=== PATIENT | female | born 1940 | race Caucasian/White ===

== ENCOUNTER 2016-08-21 | Inpatient (IN) | payer MEDICARE, OTHER, SELFPAY | END 2016-08-22 13:20 | disposition home or self-care (01) | DRG 627 | PROVIDERS: Admitting Provider Otolaryngology; Family Provider Family Medicine; Visit Provider Otolaryngology | DX: D34 Benign neoplasm of thyroid gland (principal); E04.9 Nontoxic goiter, unspecified | CPT/HCPCS: 60225; 36415; 82310; 82962; 88307; 88331; 96365; 96375; J0131; J2405 ==

== ENCOUNTER → 2017-09-06 08:09 | Outpatient (CLI) | payer MEDICARE, OTHER, SELFPAY ==
[2017-09-06 10:33] LABS: Alanine Aminotransferase 22 U/L (12-78); Albumin Level 3.9 gm/dL (3.4-5.0); Alkaline Phosphatase 91 U/L (46-116); Anion Gap 13.3 mEq/L (5-15); Aspartate Amino Transferase 16 U/L (15-37); Bilirubin,Direct 0.1 mg/dL (0.0-0.2); Bilirubin,Total 0.5 mg/dL (0.2-1.0); Blood Urea Nitrogen 28 mg/dL (7-18); Carbon Dioxide 28 mmol/L (21.0-32.0); Chloride 104 mmol/L (98-107); Chol/HDL Ratio 1.7 (1-3.5); Cholesterol 192 mg/dL (140-200); Creatinine,Serum 0.76 mg/dL (0.55-1.02); Estimated Glomerular Filt Rate 74 ml/min (>60); GFR (African American) 90 ML/MIN (>60); Glucose 102 mg/dL (74-106); HDL Cholesterol 114 mg/dL (29-89); LDL Cholesterol 70 mg/dL (0-130); Potassium 4.3 mmoL/L (3.5-5.1); Sodium 141 mmol/L (136-145); Total Protein,Serum 6.5 gm/dL (6.4-8.2); Triglycerides 41 mg/dL (30-200); VLDL Cholesterol 8 mg/dL (0-40)
== END ==
PROVIDERS: PCP Family Medicine; Visit Provider Internal Medicine Cardiovascular Disease
DX: I10 Essential (primary) hypertension (principal); E11.9 Type 2 diabetes mellitus without complications; E78.5 Hyperlipidemia, unspecified
CPT/HCPCS: 36415; 80048; 80061; 80076

== ENCOUNTER → 2017-09-13 08:08 | Outpatient (CLI) | payer MEDICARE, OTHER, SELFPAY ==
[2017-09-13 10:44] LABS: Anion Gap 12.1 mEq/L (5-15); Blood Urea Nitrogen 27 mg/dL (7-18); Carbon Dioxide 28 mmol/L (21.0-32.0); Chloride 102 mmol/L (98-107); Estimated Glomerular Filt Rate 70 ml/min (>60); GFR (African American) 85 ML/MIN (>60); Glucose 172 mg/dL (74-106); Potassium 5.1 mmoL/L (3.5-5.1); Sodium 137 mmol/L (136-145)
== END ==
PROVIDERS: PCP Family Medicine; Visit Provider Internal Medicine Cardiovascular Disease
DX: I10 Essential (primary) hypertension (principal); E78.5 Hyperlipidemia, unspecified; K21.9 Gastro-esophageal reflux disease without esophagitis; E11.9 Type 2 diabetes mellitus without complications; I45.10 Unspecified right bundle-branch block
CPT/HCPCS: 36415; 80048

== ENCOUNTER → 2017-09-20 10:39 | Outpatient (CLI) | payer MEDICARE, OTHER, SELFPAY ==
[2017-09-20 11:54] LABS: Free T4 (Free Thyroxine) 1.21 ng/dl (0.76-1.46); Thyroid Stimulating Hormone 0.12 uIU/ml (0.358-3.740)
== END ==
PROVIDERS: Visit Provider Otolaryngology
DX: E03.9 Hypothyroidism, unspecified (principal)
CPT/HCPCS: 36415; 84439; 84443

== ENCOUNTER → 2017-09-30 11:00 | Outpatient (CLI) | payer MEDICARE, OTHER, SELFPAY | PROVIDERS: PCP Otolaryngology; Visit Provider Otolaryngology | DX: B35.1 Tinea unguium (principal) | CPT/HCPCS: 87102; 87206; 87220 ==

== ENCOUNTER → 2017-10-11 12:10 | Outpatient (POV) | payer MEDICARE, OTHER, SELFPAY | PROVIDERS: PCP Family Medicine; Visit Provider Podiatrist | DX: Z00.00 Encounter for general adult medical examination without abnormal findings (principal) ==

== ENCOUNTER → 2017-12-27 09:30 | Outpatient (POV) | payer MEDICARE, OTHER, SELFPAY | PROVIDERS: PCP Family Medicine; Visit Provider Podiatrist | DX: Z00.00 Encounter for general adult medical examination without abnormal findings (principal) ==

== ENCOUNTER → 2018-01-15 13:48 | Outpatient (POV) | payer MEDICARE, OTHER, SELFPAY | PROVIDERS: PCP Family Medicine | DX: Z00.00 Encounter for general adult medical examination without abnormal findings (principal) ==

== ENCOUNTER → 2018-05-27 16:45 | Outpatient (CLI) | payer MEDICARE, SELFPAY ==
--- NOTE | 2018-05-27 16:53 | MM_ITS ---
MM Dig screening mamm BI w/CAD ORDERING PHYSICIAN : Alo Infante MD PATIENT AGE: 78 years GENDER: Female COMPARISON: May 2011, June 2014 bilateral mammogram INDICATION: ITS.REASON: SCREENING no hormones. No new complaints Family history. Sister with breast cancer age 64. TECHNIQUE: Standard CC and MLO images were obtained. R2 CAD reviewed. Additional axillary cc view bilateral FINDINGS: Breast bilaterally with moderate dense fibroglandular pattern the breast density, which does dissipate on the MLO views. No suspicious nor unique or significant new findings. No dominant mass. No suspicious calcifications. Vascular calcifications bilaterally and other benign calcifications which can be followed, and similar since prior study. IMPRESSION: ...... No significant new findings. Stable mammogram. Bilateral follow-up in not over one year recommended BI-RADS Category: 2 Benign Finding(s) RECOMMENDED FOLLOW-UP: 1YR 1 YEAR FOLLOW-UP (A letter has been sent to the patient regarding results of the study.)
== END ==
PROVIDERS: PCP Family Medicine; Visit Provider Family Medicine
DX: Z12.31 Encounter for screening mammogram for malignant neoplasm of breast (principal)
CPT/HCPCS: 77067

== ENCOUNTER → 2019-01-14 14:18 | Outpatient (POV) | payer MEDICARE, OTHER, SELFPAY | DX: Z00.00 Encounter for general adult medical examination without abnormal findings (principal) ==

== ENCOUNTER → 2019-06-16 10:55 | Outpatient (CLI) | payer MEDICARE, SELFPAY ==
--- NOTE | 2019-06-16 10:57 | MM_ITS ---
PROCEDURE: MM DIG SCREENING MAMM BI W/CAD Patient Age:79Y CLINICAL INDICATION: SCREENING routine screening mammogram. No hormones, no new complaints. . Family history. Sister breast cancer age 69 postmenopausal COMPARISON: [facility] DIGITAL MAMM-SCREEN BILATERAL from 05/30/2010 [facility] DIGITAL MAMM-SCREEN BILATERAL from 06/05/2011 [facility] DIGITAL MAMM-SCREEN BILATERAL from 06/10/2012 [facility] DIG MAMM-SCREEN ALISON from 06/12/2013 [facility] DIG MAMM-SCREEN ALISON from 06/28/2014 [facility] MM Dig screening mamm BI w/CAD from 05/27/2018 TECHNIQUE: Standard CC and MLO images were obtained. R2 CAD reviewed. additional axillary CC view bilaterally; additional right MLO nipple profile view FINDINGS: The moderate breast density. No significant change since previous studies. No suspicious or dominant new mass is evident. Stable areas of mild asymmetry. Minimal vascular calcifications bilaterally but no suspicious calcifications. Bilateral follow-up 1 year recommended The the IMPRESSION: Stable bilateral mammogram. Moderately dense breast. No new areas of concern Ongoing bilateral annual follow-up recommended BI-RAD Category: 2 Benign Finding(s) FOLLOW-UP: 1YR 1 Year Follow-up (A letter has been sent to the patient regarding results of the study.) Dictated by: Bossman White MD 06/17/2019 09:28 Electronically signed by Bossman White MD in [place] 06/17/2019 09:28
== END ==
PROVIDERS: PCP Family Medicine; Visit Provider Family Medicine
DX: Z12.31 Encounter for screening mammogram for malignant neoplasm of breast (principal)
CPT/HCPCS: 77067

== ENCOUNTER → 2019-07-29 12:50 | Outpatient (POV) | payer MEDICARE, SELFPAY | DX: Z00.00 Encounter for general adult medical examination without abnormal findings (principal) ==

== ENCOUNTER → 2020-06-17 10:14 | Outpatient (CLI) | payer MEDICARE, OTHER, SELFPAY ==
--- NOTE | 2020-06-17 10:19 | MM_ITS ---
PROCEDURE: MM DIG SCREENING MAMM BI W/CAD Digital Breast Tomosynthesis Included CLINICAL INDICATION: SCREENING There is a history of breast cancer in patient's sister diagnosed after menopause. COMPARISON: MG [facility] DIG MAMM-SCREEN ALISON from 06/28/2014 MG [facility] MM Dig screening mamm BI w/CAD from 05/27/2018 MG MM DIG SCREENING MAMM BI W/CAD from 06/16/2019 TECHNIQUE: Standard CC and MLO images and 3D Tomosynthesis was obtained. R2 CAD reviewed. FINDINGS: Moderate fibroglandular densities are seen in the central portions of both breasts and the findings bilateral and symmetrical. Minimal arterial calcification in each breast. There are few scattered benign-appearing microcalcifications in each breast. There is no new or suspicious lesion in either breast and no suspicious microcalcifications. IMPRESSION: Fibrofatty parenchyma with no suspicious lesions seen BI-RAD Category: 2 Benign Finding(s) FOLLOW-UP: 1YR 1 Year Follow-up (A letter has been sent to the patient regarding results of the study.) Dictated by: Dr. Marco A Best MD 06/21/2020 09:36 Dr. Marco A Best MD in [place] 06/21/2020 09:36
== END ==
PROVIDERS: PCP Family Medicine; Visit Provider Family Medicine
DX: Z12.31 Encounter for screening mammogram for malignant neoplasm of breast (principal)
CPT/HCPCS: 77063; 77067

== ENCOUNTER → 2020-07-13 09:17 | Outpatient (CLI) | payer MEDICARE, OTHER, SELFPAY ==
--- NOTE | 2020-07-13 09:22 | XR_ITS ---
PROCEDURE: XR HAND LT MIN 3V CLINICAL INDICATION: LT HAND PAIN COMPARISON: CR WRL3 WRIST-3 VIEWS-LT from 11/01/2016 FINDINGS: No the metallic volar plate is again seen distal radius fixated by multiple threaded screws. The plate and screws are unchanged in appearance from the previous exam. There is no evidence of loosening of the threaded screws. The distal ulna is intact. The carpal bones appear normal. The soft tissues are unremarkable. IMPRESSION: Stable ORIF distal radial fracture, no acute pathology identified Dictated by: Dr. Marco A Best MD 07/13/2020 10:26 Dr. Marco A Best MD in [place] 07/13/2020 10:26
== END ==
PROVIDERS: PCP Family Medicine; Visit Provider Family Medicine
DX: M79.642 Pain in left hand (principal)
CPT/HCPCS: 73130

== ENCOUNTER → 2020-08-17 13:13 | Outpatient (POV) | payer MEDICARE, OTHER, SELFPAY | DX: Z00.00 Encounter for general adult medical examination without abnormal findings (principal) ==

== ENCOUNTER 2020-08-30 14:00 | Outpatient (RCR) | payer MEDICARE, OTHER, SELFPAY ==
--- NOTE | 2020-08-19 14:59 | HMH.OTOPEV ---
OT Inpatient Evaluation Rehab OT Outpatient Eval Start: 08/19/20 14:41 Freq: Status: Active Protocol: Document 08/19/20 14:41 RMARSHALL (Rec: 08/19/20 14:59 RMARSHALL [id number]) Electronically Signed By Chad Pool OT 08/19/20 14:41 Outpatient Therapy Subjective History Subjective History Pt is a 80 year old female who reports to therapy for initial evaluation to L ring finger. Pt reports she started having pain in the left ring finger/palm ~1 month ago and does not recall any specific injury. Pt did report ~3 years ago she required wrist surgery; however she has not had pain since. Pt also reports she has catching in the left ring finger causing pops and clicks . Pt's AROM is WNL; however, pt's strength is slightly declined. Pt will continue to be seen weekly in order to address all deficits. Chief Complaint Pain,Weakness Symptom Type Throb,Sharp Symptoms Relieved By Rest/Positioning Symptoms Aggravated By Physical Activity,Lifting Prior Functional Limitations None Current Functional Limitations Lifting,Housework,Sleeping, Recreation Activity Symptom Description Intermittent,Activity Dependent Level of pain today (0-10) 5 Pain scale - at its best (0-10) 0 Pain scale - at its worst (0-10) 8 Wrist/Hand Eval Finger Range of Motion Left Ring Finger Finger Metacarpophalangeal Flexion 90 degrees Active Range of Motion (degrees) Finger Metacarpophalangeal Extension 0 degrees Active Range of Motion (degrees) Finger Proximal Interphalangeal Flexion 100 degrees Active Range (degrees) Finger Proximal Interphalangeal 0 degrees Extension Active Range (degrees) Finger Distal Interphalangeal Flexion 50 degrees Active Range of Motion (degrees) Finger Distal Interphalangeal Extension 0 degrees Active Range Motion (degrees) Hand/Finger Manual Muscle testing Finger Flexion Strength Grade 3+ Fair+ Finger Extension Strength Grade 3+ Fair+ Finger Abduction Strength Grade 3+ Fair+ Finger Adduction Strength Grade 3+ Fair+ OT Outpatient Assessment Impairments Problems/Impairments Palpation Tenderness,Impaired Range of Motion,Impaired Strength,
== END 2020-08-30 14:05 | disposition home or self-care (01) ==
LOC: OT 14:00
PROVIDERS: PCP Family Medicine; Visit Provider Family Medicine
DX: M79.642 Pain in left hand (principal)
CPT/HCPCS: 97010; 97035; 97110; 97140; 97166

== ENCOUNTER → 2021-01-25 13:03 | Outpatient (POV) | payer MEDICARE, OTHER, SELFPAY | DX: Z00.00 Encounter for general adult medical examination without abnormal findings (principal) ==

== ENCOUNTER → 2021-02-17 08:55 | Outpatient (CLI) | payer MEDICARE, OTHER, SELFPAY ==
--- NOTE | 2021-02-17 09:00 | XR_ITS ---
PROCEDURE: XR HAND LT MIN 3V CLINICAL INDICATION: LT hand trigger finger COMPARISON: CR XR HAND LT MIN 3V from 07/13/2020 FINDINGS: No fracture or dislocation. No lytic or blastic change. There is normal mineralization. The joint spaces are well-preserved. No significant degenerative/arthritic changes. No erosive changes evident. Other findings:Prior ORIF distal radius with volar bone plate IMPRESSION: Negative left hand Dictated by: Cem Hagen MD 02/17/2021 10:04 Cem Hagen MD in [place] 02/17/2021 10:04
== END ==
PROVIDERS: PCP Family Medicine; Visit Provider Orthopaedic Surgery
DX: M79.642 Pain in left hand (principal)
CPT/HCPCS: 73130

== ENCOUNTER → 2021-07-07 16:25 | Outpatient (CLI) | payer MEDICARE, OTHER, SELFPAY ==
--- NOTE | 2021-07-07 16:27 | MM_ITS ---
PROCEDURE INFORMATION: Exam: MG Bilateral Screening 3D Mammography Exam date and time: 07/07/2021 4:27 PM Age: 81 years old Clinical indication: Encounter for screening mammogram for malignant neoplasm of breast TECHNIQUE: Imaging protocol: Bilateral screening tomosynthesis and 2D mammography including computer-aided detection (CAD) when performed. COMPARISON: 1. MG MM DIG SCREENING MAMM BI W/CAD 06/17/2020 10:33 AM 2. MG MM DIG SCREENING MAMM BI W/CAD 06/16/2019 11:08 AM FINDINGS: MAMMOGRAPHY: Breast composition: The breast tissue is heterogeneously dense, which may obscure small masses. Mass: None. Architectural distortion: None. Calcifications: No suspicious calcifications. Asymmetric density: None. Skin thickening: None. Axillary adenopathy: None. IMPRESSION: No mammographic evidence of malignancy. Annual screening is recommended unless otherwise clinically indicated. ASSESSMENT: BI-RADS Category 1: Negative
== END ==
PROVIDERS: PCP Family Medicine; Visit Provider Family Medicine
DX: Z12.31 Encounter for screening mammogram for malignant neoplasm of breast (principal)
CPT/HCPCS: 77063; 77067

== ENCOUNTER → 2021-08-09 08:27 | Outpatient (CLI) | payer MEDICARE, SELFPAY ==
[2021-08-09 09:41] LABS: Alanine Aminotransferase 13 U/L (12-78); Albumin Level 4.1 g/dl (3.5-5.0); Albumin/Globulin Ratio 1.7 (1.1-1.8); Alkaline Phosphatase 97 U/L (38-126); Aspartate Amino Transferase 27 U/L (14-36); Bilirubin,Total 0.5 mg/dl (0.2-1.3); Blood Urea Nitrogen 25 mg/dl (7-17); Calcium 9.4 mg/dl (8.4-10.2); Carbon Dioxide 30 mmol/L (22.0-30.0); Chloride 102 mmol/L (98-107); Estimated Glomerular Filt Rate 60 ml/min (>60); GFR (African American) 73 ML/MIN (>60); Globulin 2.4 g/dL (1.3-3.2); Glucose 162 mg/dl (74-100); Sodium 136 mmol/L (136-145); Total Protein,Serum 6.5 g/dl (6.3-8.2)
[2021-08-09 10:12] LABS: Thyroid Stimulating Hormone 2.03 uIU/mL (0.465-4.68)
[2021-08-09 10:18] LABS: Creatinine,Urine Random 303 mg/dL (Not Estab.)
[2021-08-09 10:21] LABS: Microalbumin/Creatinine Ratio 25.9
== END ==
PROVIDERS: PCP Family Medicine; Visit Provider Physician Assistant
DX: E10.65 Type 1 diabetes mellitus with hyperglycemia (principal); E89.0 Postprocedural hypothyroidism; Z79.4 Long term (current) use of insulin
CPT/HCPCS: 36415; 80053; 82043; 82570; 84443

== ENCOUNTER → 2021-10-03 13:41 | Outpatient (POV) | payer MEDICARE, SELFPAY | PROVIDERS: Visit Provider Dermatology | DX: Z00.00 Encounter for general adult medical examination without abnormal findings (principal) ==

== ENCOUNTER → 2021-10-05 12:44 | Outpatient (CLI) | payer MEDICARE, SELFPAY ==
--- NOTE | 2021-10-05 12:45 | CA_ITS ---
APPROVED REPORT EXAM: Comprehensive 2D, Doppler, and color-flow Echocardiogram [employer] And Edger: Kriss Cordon RVT Ht: 5 ft 3 in Wt: 125lbs BSA: 1.58 BP: 190/53 mmHg Indications: ABN EKG,RBBB,HTN,DM,HLD,GERD 2D Dimensions LVOT 1.86 cm (M/F) 1.5-2.5 LA Volume 48.80 mL LA Volume Index 30.88 mL/m2 (M/F) 16-34 M-Mode Dimensions RVDd 1.86 cm (0.9-2.6) LA Diam 4.17 cm (1.9-4.0) LVDd 5.12 cm (3.5-5.7) Ao Diam 2.76 cm (2.0-3.7) LVDs 3.75 cm (3.5-5.7) IVSd 0.87 cm (0.6-1.1) PWd 0.72 cm (0.6-1.1) EF (Teich) 52.00% FS 26.80% EDV (Teich) 124.90 mL TAPSE 2.47 (<1.7) ESV (Teich) 60.00 mL LV Diastology E Decel Time 260.00 (160-240 msec) E/A Ratio 0.8 MED E' 7.20 (< 7 cm/sec) E'/MED E' Ratio 16.18 (>14) LAT E' 6.60 (<10 cm/sec) E/LAT E' Ratio 17.65 (>14) Aortic Valve LVOT Max 133.00 (70-110 cm/s) LVOT VTI 36.59 cm AoV Peak Morgan. 181.00 (50-130 cm/s) AO Peak GR. 13.10 mmHg AO Mean GR. 6.10 (<5 mmHg) AO VTI 38.80 (18-25 cm) ADALI (VTI) 2.56 (2.5-4.5 cm2) Mitral Valve MV E Max Morgan. 117.00 (40-130 cm/s) MV A Velocity 153.00 (40-130 cm/s) E/A Ratio 0.76 MV Decel. Time 260.00 (160-240 ms) MV PHT 76.00 ms Pulmonary Valve PV Peak Velocity 93.00 (50-150 cm/s) Tricuspid Valve TR P. Velocity 337.00 cm/s RAP Estimate 10.00 mmHg RVSP 55.50 mmHg Left Ventricle Left atrium is mildly enlarged, left ventricle is normal size, mild concentric left ventricular hypertrophy, visually estimated ejection fraction 55% with no regional wall motion abnormality, grade 1 diastolic dysfunction seen with tissue Doppler evidence of raise left atrial pressure. Right Ventricle Right atrium and right ventricle are normal size and contractility. Aortic Valve Aortic valve is thickened and calcified without aortic stenosis or aortic insufficiency. Mitral Valve Mitral valve has mitral calcification which extends in both anterior and posterior mitral leaflet, there is mild restriction in the leaflet mobility, mean gradient across mitral valve is 5.6 mmHg, valve area is 2.8 cm??? by pressure half-time represents mild calcific mitral stenosis, there is mild mitral regurgitation. Tricuspid Valve Tricuspid valve grossly normal, there is mild tricuspid regurgitation, calculated right ventricular systolic pressure is 44 mmHg. Pulmonic Valve Pulmonic valve is poorly visualized. Great Vessels Aortic root is normal size. Inferior vena cava is poorly visualized. Pericardium No significant pericardial effusion noted. Conclusion 1. Mildly enlarged left atrium, normal left ventricular size, mild concentric left ventricular hypertrophy, visually estimated ejection fraction 55% with no regional wall motion abnormality, grade 1 diastolic dysfunction seen with tissue Doppler evidence of raise left atrial pressure. 2. Thickened and calcified aortic valve without aortic stenosis or aortic insufficiency. 3. Abnormal mitral valve as described above with mild mitral stenosis, there is mild mitral regurgitation. 4. Mild tricuspid regurgitation, calculated right ventricular systolic pressure is 44 mmHg. 5. No significant pericardial effusion. 6. Inferior vena cava is poorly visualized. Electronically signed by : Xander Smith MD 10/06/2021 12:47:57
== END ==
PROVIDERS: PCP Family Medicine; Visit Provider Physician Assistant
DX: E11.9 Type 2 diabetes mellitus without complications (principal); E78.2 Mixed hyperlipidemia; I45.10 Unspecified right bundle-branch block; K21.9 Gastro-esophageal reflux disease without esophagitis; R94.31 Abnormal electrocardiogram [ECG] [EKG]; Z79.4 Long term (current) use of insulin
CPT/HCPCS: 93306

== ENCOUNTER → 2021-10-24 10:23 | Outpatient (CLI) | payer MEDICARE, SELFPAY ==
[2021-10-24 11:40] LABS: Chloride 105 mmol/L (98-107); Sodium 133 mmol/L (136-145)
[2021-10-24 11:43] LABS: Blood Urea Nitrogen 31 mg/dl (7-17); Carbon Dioxide 27 mmol/L (22.0-30.0); Estimated Glomerular Filt Rate 53 ml/min (>60); GFR (African American) 65 ML/MIN (>60)
[2021-10-24 11:44] LABS: Calcium 8.4 mg/dl (8.4-10.2); Glucose 141 mg/dl (74-100)
== END ==
PROVIDERS: Visit Provider Nurse Practitioner Family
DX: E11.9 Type 2 diabetes mellitus without complications (principal); E78.2 Mixed hyperlipidemia; I10 Essential (primary) hypertension; I45.10 Unspecified right bundle-branch block; K21.9 Gastro-esophageal reflux disease without esophagitis; R60.9 Edema, unspecified; R94.31 Abnormal electrocardiogram [ECG] [EKG]; Z79.4 Long term (current) use of insulin
CPT/HCPCS: 36415; 80048

== ENCOUNTER → 2021-12-14 09:34 | Outpatient (CLI) | payer MEDICARE, SELFPAY ==
[2021-12-14 10:51] LABS: Anion Gap 12.3 mEq/L (5-15); Blood Urea Nitrogen 31 mg/dl (7-17); Calcium 9.1 mg/dl (8.4-10.2); Carbon Dioxide 26 mmol/L (22.0-30.0); Chloride 104 mmol/L (98-107); Estimated Glomerular Filt Rate 60 ml/min (>60); GFR (African American) 73 ML/MIN (>60); Glucose 66 mg/dl (74-100); Potassium 4.3 mmoL/L (3.5-5.1); Sodium 138 mmol/L (136-145)
== END ==
PROVIDERS: PCP Family Medicine; Visit Provider Physician Assistant
DX: E78.2 Mixed hyperlipidemia (principal); E87.1 Hypo-osmolality and hyponatremia; I10 Essential (primary) hypertension; K21.9 Gastro-esophageal reflux disease without esophagitis; R06.02 Shortness of breath; R42 Dizziness and giddiness; R94.31 Abnormal electrocardiogram [ECG] [EKG]
CPT/HCPCS: 36415; 80048

== ENCOUNTER → 2022-03-06 08:11 | Outpatient (CLI) | payer MEDICARE, SELFPAY ==
[2022-03-06 16:57] LABS: Cholesterol 180 mg/dl (140-200); HDL Cholesterol 88 mg/dl (40-60); Triglycerides 61 mg/dl (30-150); VLDL Cholesterol 12 mg/dL (0-40)
[2022-03-07 08:46] LABS: Direct LDL Cholesterol 84 mg/dL (100-129)
== END ==
PROVIDERS: PCP Family Medicine; Visit Provider Physician Assistant
DX: E78.00 Pure hypercholesterolemia, unspecified (principal)
CPT/HCPCS: 36415; 80061

== ENCOUNTER → 2022-07-24 13:13 | Outpatient (POV) | payer MEDICARE, SELFPAY | PROVIDERS: Visit Provider Dermatology | DX: Z00.00 Encounter for general adult medical examination without abnormal findings (principal) ==

== ENCOUNTER → 2023-03-29 15:46 | Outpatient (CLI) | payer MEDICARE, SELFPAY ==
--- NOTE | 2023-03-29 15:46 | US_ITS ---
PROCEDURE: US TRANSVAGINAL CLINICAL INDICATION: Postmenopausal Bleeding/ Also has Pessary COMPARISON: No exams were available for comparison FINDINGS: Transvaginal sonographic images of the pelvis were obtained. UTERUS: 6.3 cm x 3.9 cmx 2.9 cm. The uterus is anteverted. Within the uterine cavity is a cystic mass measuring 2.6 cm x 1.7 cm x 2.8 cm. It has the ground-glass appearance of blood clot. The endometrium appears very thin. The uterine myometrium appears calcified. LEFT OVARY: Not visualized RIGHT OVARY: Not visualized Both ovaries are not seen. Both adnexae appear normal. There is no fluid in the cul-de-sac. IMPRESSION: 1. Anteverted small uterus. The myometrium is calcified. 2. Within the endometrial cavity appears to be a 2.8 centimeter collection of blood. 3. The ovaries are not seen likely due to atrophy. 4. No fluid in the cul-de-sac. Dictated by: Shaun Stoll MD 04/01/2023 10:00 Shaun Stoll MD in [place] 04/01/2023 10:00
== END ==
PROVIDERS: PCP Family Medicine; Visit Provider Obstetrics & Gynecology
DX: N95.0 Postmenopausal bleeding (principal); Z96.0 Presence of urogenital implants
CPT/HCPCS: 76830

== ENCOUNTER → 2023-05-14 10:12 | Outpatient (CLI) | payer MEDICARE, SELFPAY ==
[2023-05-14 10:45] LABS: Basophils % 0.6 % (0.1-2.0); Eosinophils # 0.2 K/mm3 (0.0-0.4); Eosinophils % 2.4 % (0.1-12.0); Hematocrit 33.4 % (37.0-47.0); Hemoglobin 11.3 g/dL (12.2-16.2); Lymphocytes # 1.4 K/mm3 (0.7-4.5); Lymphocytes % 23.3 % (10-50); Mean Corpuscular HGB Conc 33.8 g/dL (31.8-35.4); Mean Corpuscular Hemoglobin 31.9 pg (27.0-31.2); Mean Corpuscular Volume 94.5 fl (81-99); Mean Platelet Volume 8.8 fl (7.4-10.4); Monocytes # 0.6 K/mm3 (0.1-1.0); Monocytes % 9.2 % (1.7-9.3); Neutrophils # 3.9 K/mm3 (1.8-7.8); Neutrophils % 64.4 % (37.0-80.0); Platelet Count 255 K/mm3 (142-424); Red Blood Count 3.53 M/mm3 (4.20-5.40); Red Cell Distribution Width 13.2 % (11.5-17.5)
[2023-05-14 11:53] LABS: Alanine Aminotransferase 16 U/L (12-78); Albumin Level 4.2 g/dl (3.5-5.0); Albumin/Globulin Ratio 1.6 (1.1-1.8); Alkaline Phosphatase 113 U/L (38-126); Anion Gap 14.5 mEq/L (5-15); Aspartate Amino Transferase 28 U/L (14-36); Bilirubin,Total 0.7 mg/dl (0.2-1.3); Blood Urea Nitrogen 43 mg/dl (7-17); Calcium 9.4 mg/dl (8.4-10.2); Carbon Dioxide 26 mmol/L (22.0-30.0); Chloride 99 mmol/L (98-107); Estimated Glomerular Filt Rate 48 ml/min (>60); GFR (African American) 58 ML/MIN (>60); Globulin 2.7 g/dL (1.3-3.2); Glucose 206 mg/dl (74-100); Potassium 4.5 mmoL/L (3.5-5.1); Sodium 135 mmol/L (136-145); Total Protein,Serum 6.9 g/dl (6.3-8.2)
== END ==
PROVIDERS: PCP Family Medicine; Visit Provider Obstetrics & Gynecology
DX: I10 Essential (primary) hypertension (principal); Z01.818 Encounter for other preprocedural examination
CPT/HCPCS: 36415; 80053; 85025

== ENCOUNTER → 2023-07-02 08:28 | Outpatient (CLI) | payer MEDICARE, SELFPAY ==
[2023-07-02 10:30] LABS: Free T4 (Free Thyroxine) 1.38 ng/dl (0.78-2.19)
[2023-07-02 14:32] LABS: Cholesterol 201 mg/dl (140-200); Triglycerides 56 mg/dl (30-150); VLDL Cholesterol 11 mg/dL (0-40)
[2023-07-02 14:40] LABS: HDL Cholesterol 97 mg/dl (40-60)
[2023-07-02 14:44] LABS: Direct LDL Cholesterol 80.04 mg/dL (100-129)
[2023-07-02 15:04] LABS: Thyroid Stimulating Hormone 0.31 uIU/mL (0.465-4.68)
== END ==
PROVIDERS: PCP Family Medicine; Visit Provider Internal Medicine
DX: E78.00 Pure hypercholesterolemia, unspecified; E89.0 Postprocedural hypothyroidism
CPT/HCPCS: 36415; 80061; 84439; 84443

== ENCOUNTER 2023-07-31 13:52 | Outpatient (CLI) | payer MEDICARE, SELFPAY ==
[2023-07-31 14:10] LABS: Basophils # 0.1 K/mm3 (0-0.2); Basophils % 0.9 % (0.1-2.0); Eosinophils # 0.2 K/mm3 (0.0-0.4); Eosinophils % 2.9 % (0.1-12.0); Hematocrit 36.4 % (37.0-47.0); Hemoglobin 11.8 g/dL (12.2-16.2); Lymphocytes # 2.2 K/mm3 (0.7-4.5); Lymphocytes % 30.1 % (10-50); Mean Corpuscular HGB Conc 32.4 g/dL (31.8-35.4); Mean Corpuscular Hemoglobin 30.8 pg (27.0-31.2); Mean Corpuscular Volume 94.9 fl (81-99); Mean Platelet Volume 8.7 fl (7.4-10.4); Monocytes # 0.5 K/mm3 (0.1-1.0); Monocytes % 7.2 % (1.7-9.3); Neutrophils # 4.3 K/mm3 (1.8-7.8); Neutrophils % 58.9 % (37.0-80.0); Platelet Count 316 K/mm3 (142-424); Red Blood Count 3.83 M/mm3 (4.20-5.40); Red Cell Distribution Width 13.1 % (11.5-17.5); White Blood Count 7.3 K/mm3 (4.8-10.8)
[2023-07-31 15:01] LABS: Chloride 102 mmol/L (98-107); Potassium 4.3 mmoL/L (3.5-5.1); Sodium 139 mmol/L (136-145)
[2023-07-31 15:03] LABS: Blood Urea Nitrogen 54 mg/dl (7-17); Estimated Glomerular Filt Rate 33 ml/min (>60); GFR (African American) 40 ML/MIN (>60)
[2023-07-31 15:04] LABS: Alanine Aminotransferase 17 U/L (12-78); Albumin Level 4.3 g/dl (3.5-5.0); Albumin/Globulin Ratio 1.6 (1.1-1.8); Alkaline Phosphatase 120 U/L (38-126); Anion Gap 14.3 mEq/L (5-15); Aspartate Amino Transferase 26 U/L (14-36); Bilirubin,Total 0.5 mg/dl (0.2-1.3); Calcium 9.2 mg/dl (8.4-10.2); Carbon Dioxide 27 mmol/L (22.0-30.0); Globulin 2.7 g/dL (1.3-3.2); Glucose 140 mg/dl (74-100)
== END 2023-07-31 23:59 ==
LOC: LAB 13:54
PROVIDERS: PCP Family Medicine; Visit Provider Obstetrics & Gynecology
DX: Z01.812 Encounter for preprocedural laboratory examination (principal); D64.9 Anemia, unspecified
CPT/HCPCS: 36415; 80053; 85025

== ENCOUNTER 2023-08-06 06:03 | Day surgery (SDC) | payer MEDICARE, SELFPAY ==
[2023-08-01 16:57] VITALS: BMI 20.5
[2023-08-06] VITALS (10 sets, daily range): BP systolic 107–155; BP diastolic 41–60; PULSE 84–93; RESP 12–18; TEMP 36–36.8; O2SAT 93–99
[2023-08-06 06:37] LABS: POC Glucose,Bedside 275 (70-110)
[2023-08-06] MEDS: LACTATED RINGERS 1000ML 1,000 ML 25 ML IV (06:37)
--- NOTE | 2023-08-06 07:13 | P.PNANES_ITS ---
[facility] Disclaimer: The information contained in this section may have been updated after the patient was seen, as this information can be updated by other users. Medical History Cystocele with uterine prolapse Diabetes mellitus Dizziness Edema Gastroesophageal reflux disease Hyperlipidemia Hypertensive disorder Hypothyroidism Postmenopausal bleeding Prolapse of female pelvic organs Right bundle branch block Urethral caruncle Vulvar lesion Surgical History History of surgery on wrist Hx of thyroidectomy Family History Other Cancer Diabetes Hypertension Social History (Updated 08/06/23 @ 06:35 by Abril Benavidez RN) Smoking Status: Never smoker alcohol intake: never substance use type: denies use current occupational status: retired Travel in the last 8 weeks: None marital status: [facility] Anesthesia Checklist Patient Identification Patient Identification: Arm Band, Family and Verbal (Name & ) Structural Data Admitted From: Home Planned Operative Procedure/s: Hysteroscopy; D&C; Myosure Consent for Planned Operative Procedure(s) Verified: Yes Verified Documents: Surgical Consent and History and Physical NPO Status Verified Time NPO: 22:00 Chart Verification Results Verified: CBC, BMP and ECG Additional verifications Fingerstick Blood Glucose: 275 Patient : No Anesthesia Reactions: No Hx Blood Transfusions: No Blood Transfusion Reaction: No Cardiovascular Assessment Heart Sounds: S1 & S2 Pulse Rhythm: Irregular Peripheral Edema: No Airway Assessment Mallampati Score:: Class II C-Spine Mobility Assessed: Yes (FROM) TMJ Mobility Assessed: Yes Dentition: Good Dentition (Nothing loose per pt.) Neurological Assessment Level of Consciousness: Awake, Alert, Appropriate and Follows Commands Hx Seizures: No Numbness or tingling in extremities: No Anesthesia Plan Anesthesia Risk discussed: Yes Anesthesia Plan: Verified ASA Class: III Anesthesia Type: General
--- NOTE | 2023-08-06 08:09 | P.PNANES_ITS ---
[facility] Anesthesia Record Part I Anesthesia Record I Intake, IV Amount: 800 Hydration: Adequate Estimated blood loss (mL): 5 Urine output (mL): 50 Blood Products used (#): none Blood Pressure: 107/41 SaO2: 94 Pulse Rate: 92 Airway Patency: Patent Respiratory Rate: 12 Temperature: 96.8 F Patient is:: Awake (Talking) and Stable Stable to PACU at:: 08:11
[2023-08-06 08:24] LABS: POC Glucose,Bedside 304 (70-110)
--- NOTE | 2023-08-06 08:45 | EXP.OP.NOTE ---
Date of procedure: 08/06/23 Pre-op Diagnosis:: 1. Postmenopausal bleeding Post-op Diagnosis:: 1. Postmenopausal bleeding Procedure performed:: 1. Hysteroscopy, dilation and curettage 2. Anaerobic and Aerobic cultures taken of endometrial fluid Surgeon:: Ivy Oliva DO Building [employer] Retrofit Technician(s):: N/a MANUFACTURER:: Other (GISELLA Hauser) Anesthesia: GETA Estimated blood loss (mL): 0 Clinical Note:: Virginia is a very pleasant 83 yo [id number] who presents for preop visit. She had postmenopausal bleeding for almost 2 months. She experienced bleeding every day from mid February until her pelvic ultrasound 03/29/23. She states bleeding stopped after pelvic ultrasound until she had a small amount of bleeding 04/09. Pelvic ultrasound 03/29/23 demonstrated anteverted small uterus, the myometrium is calcified. Within the endometrial cavity appears to be a 2.8 centimeter collection of blood. Denies bleeding since. Operative findings:: 1. On bimanual exam, uterus small, midline, retroverted. No adnexal masses palpated. Cervix appears grossly normal. Caramel brown colored fluid draining from cervical os during cervical dilation. 2. On hysteroscopic exam, left tubal ostia easily visualized but atrophic. Right tubal ostia not visualized. Uterine cavity with grossly normal atrophic endometrium. No masses, lesions or polyps. Operative note:: Risks, benefits and alternatives were discussed with the patient. Risks include but are not limited to bleeding, infection, uterine perforation and VTE. Patient voiced understanding and agreed to proceed. She was wheeled back to the operating room and placed under general anesthesia without difficulty. She was placed in dorsal lithotomy position. Pessary was removed. She was prepped and draped in the normal sterile fashion. Straight catheter was used to drain the bladder. A bimanual exam was performed. A weighted Auvard was placed in the vaginal vault. Single tooth tenaculum was placed on anterior lip of the cervix. Uterus sounded to 7. Sequential Francisco dilators were used to dilate the cervical os. Brown drainage was flowing from the cervix during cervical dilation. Anaerobic and Aerobic cultures collected and sent. Hysteroscope was tested inserted through the cervix without difficulty. Endometrial cavity was evaluated. See findings above. Pictures were taken. A medium size sharp curette was inserted through the cervix into the uterine cavity and endometrium was curetted with a systematic back and forth movement in a 360 degree manner. Scant endometrial curettings will be sent to pathology for review. Instruments were removed from the vagina. Tenaculum site was hemostatic. Pessary was washed, dried and resinserted into the vagina. Patient was awaken from anesthesia without difficulty. She was transported to recovery room in stable condition. Patient will be discharged home when awake and ambulating. She was given postop instructions as well as instructions to follow-up in the office in 2 weeks at which time pathology will be reviewed. Condition: stable Disposition: same day Specimens:: 1. Scant endometrial curettings Complications:: None
--- NOTE | 2023-08-06 12:41 | EXP.ANES.II ---
[facility] Anesthesia Record Part II Anesthesia Record Part II Discharge Time: 08:36 Destination: Surgical Day Care (OP Surgery) PACU nurse assessment reviewed?: Yes Patient Condition:: Good Anesthesia Complications:: None Swallowing reflex intact?: Yes Airway Patency: Patent Cyanosis?: No Blood Pressure: 108/43 SaO2: 93 Respiratory Rate: 15 Pulse Rate: 93 Temperature: 97.9 F Mental Status: Alert & Oriented Pain level:: 0 Nausea and/or vomitting:: None Intake, IV Amount: 0 Hydration: Adequate
== END 2023-08-06 09:00 | disposition home or self-care (01) ==
PROVIDERS: PCP Family Medicine; Visit Provider Obstetrics & Gynecology
PROC: (CPT 58558; principal; 2023-08-06 07:30)
DX: N95.0 Postmenopausal bleeding (principal); N85.8 Other specified noninflammatory disorders of uterus; E11.9 Type 2 diabetes mellitus without complications
CPT/HCPCS: 58558; 82962; 87070; 87075; 87205; 88305; J2405

== ENCOUNTER 2023-10-02 07:58 | Outpatient (CLI) | payer MEDICARE, SELFPAY ==
--- NOTE | 2023-10-02 08:01 | CA_ITS ---
FINAL REPORT TECHNIQUE: Color Doppler, duplex Doppler and buckner scale sonography of the bilateral neck arterial vasculature was performed. Velocities were measured in the carotid arteries. Stenosis evaluation based on the validated velocity criteria. CLINICAL HISTORY: dizziness, RBBB, HTN, hyperlipidemia, DM, GERD, ABN EKG FINDINGS: The peak systolic velocity of the right common carotid artery is 105 cm/s. The peak systolic velocity of the right internal carotid artery is 84 cm/s and end diastolic velocity 21 cm/s. The ICA/CCA ratio is .86. A small amount of plaque is present. The right external carotid artery is patent. The right vertebral artery is patent with antegrade flow. The peak systolic velocity of the left common carotid artery is 108 cm/s. The peak systolic velocity of the left internal carotid artery is 77 cm/s and end diastolic velocity 16 cm/s. The ICA/CCA ratio is 1.0. A small amount of plaque is present. The left external carotid artery is patent.The left vertebral artery is patent with antegrade flow. IMPRESSION: Less than 50% bilateral carotid stenoses. Bilateral patent vertebral arteries with antegrade flow. If indicated, CTA or MRA could further evaluate. Reviewed, Interpreted and Dictated by Juanjose Rousseau III, MD Transcribed by Miroslava Garcia Authenticated and [facility]
--- NOTE | 2023-10-02 08:01 | CA_ITS ---
APPROVED REPORT EXAM: Comprehensive 2D, Doppler, and color-flow Echocardiogram Tutoring Manager: Evita Pratt CRT Ht: 5 ft 3 in Wt: 115lbs BSA: 1.53 BP: 126/41 mmHg Indications: Abnormal ECG, Aortic Valve Disease, Mitral Valve Disease, Rheumatic Fever, Diabetes, Hyperlipidemia, Hypertension/HDD 2D Dimensions Left Atrium 3.78 cm LVEF (Beltrán's) 55.70 % LVOT 1.39 cm (M/F) 1.5-2.5 LV Volume 53.50 mL LA Volume 48.30 mL LA Volume Index 31.60 mL/m2 (M/F) 16-34 EF AP4 56.40 % EF AP2 51.7 % EF BP 55.7 % GL Strain -20.0 % M-Mode Dimensions RVDd 3.09 cm (0.9-2.6) LVDd 3.59 cm (3.5-5.7) Ao Diam 3.30 cm (2.0-3.7) LVDs 2.54 cm (3.5-5.7) IVSd 1.07 cm (0.6-1.1) PWd 0.81 cm (0.6-1.1) EF (Teich) 57.10% FS 29.20% EDV (Teich) 54.10 mL TAPSE 2.32 (<1.7) ESV (Teich) 23.20 mL LV Diastology E Decel Time 372 (160-240 msec) E/A Ratio 0.76 MED E' 5.7 (>= 7 cm/sec) MED A' 8.70 cm/s E'/MED E' Ratio 22.74 (<= 14) LAT E' 6.5 (>= 10 cm/sec) LAT A' 12.40 cm/s E/LAT E' Ratio 19.94 (<= 14) Aortic Valve LVOT Max 134.0 (70-110 cm/s) ADALI Index 0.82 cm2/m2 LVOT VTI 34.05 cm AoV Peak Morgan. 175.0 (50-130 cm/s) AO Peak GR. 11.60 mmHg AO Mean GR. 6.40 (<5 mmHg) AO VTI 40.9 (18-25 cm) ADALI (VTI) 1.26 (2.5-4.5 cm2) Mitral Valve MV E Max Morgan. 130.0 (40-130 cm/s) MV A Velocity 170.0 (40-130 cm/s) E/A Ratio 0.76 MV Decel. Time 372 (160-240 ms) MV Mean Gr. 5.20 (<2mmHg) Tricuspid Valve TR P. Velocity 307.00 cm/s RAP Estimate 10.00 mmHg RVSP 47.70 mmHg Left Ventricle The left ventricle is normal size. The left ventricular systolic function is normal. The left ventricular ejection fraction is within the normal range. There is increased LV wall thickness. There is normal LV segmental wall motion. Grade 2 diastolic dysfunction is present. LVEF is 60%. Right Ventricle The right ventricle is mildly dilated. The right ventricular systolic function is normal. There is a device lead in the right ventricle. Atria Left atrium is mildly dilated. Right atrium is mildly dilated. There is no Doppler evidence of interatrial shunt. Aortic Valve The aortic valve is mildly thickened. There is no aortic valvular stenosis. Trace aortic regurgitation. Mitral Valve Moderate mitral annular calcification. The mitral valve leaflets are mildly thickened, cannot rule out rheumatic mitral valve morphology. Mild mitral stenosis. Mean MV gradient 5 mmHg (HR 82 bpm). Mild mitral regurgitation. Tricuspid Valve The tricupis valve leaflets are thin and pliable. Mild tricuspid regurgitation. RVSP is 30-35 mmHg. Pulmonic Valve The pulmonary valve is normal in structure. Trace pulmonic regurgitation. Great Vessels The aortic root is normal in size. The ascending aorta is not well visualized. IVC is normal in size and collapses >50% with inspiration. Pericardium Trivial pericardial effusion. There are no echo indications of tamponade. Other Information Study Quality: Fair Conclusion Normal biventricular systolic function. Grade 2 diastolic dysfunction. Mild RV dilation. Biatrial dilation. Mild MR. Thickened MV, cannot rule out rheumatic mitral valve morphology. Mild MS (mean MV gradient 5mmHg at HR 82 bpm). Mild TR. RVSP is 30-35 mmHg. Trivial pericardial effusion. No echo indications of tamponade. Electronically signed by : Magy Rios MD 10/04/2023 23:04:34
== END 2023-10-02 23:59 ==
LOC: RT 08:01
PROVIDERS: PCP Family Medicine; Visit Provider Nurse Practitioner Family
DX: K21.9 Gastro-esophageal reflux disease without esophagitis (principal); E78.5 Hyperlipidemia, unspecified; R42 Dizziness and giddiness; I10 Essential (primary) hypertension; E11.9 Type 2 diabetes mellitus without complications; I34.0 Nonrheumatic mitral (valve) insufficiency; Z79.4 Long term (current) use of insulin
CPT/HCPCS: 93306; 93880

== ENCOUNTER 2023-10-08 18:25 | Emergency (ER) | payer MEDICARE, SELFPAY ==
--- NOTE | 2023-10-08 18:34 | XR_ITS ---
PROCEDURE INFORMATION: Exam: XR Right Hand Exam date and time: 10/08/2023 6:31 PM Age: 83 years old Clinical indication: Injury or trauma; Fall; Blunt trauma (contusions or hematomas); Hand; Right; Additional info: Pain TECHNIQUE: Imaging protocol: Radiologic exam of the right hand. Views: 3 or more views. COMPARISON: CR XR WRIST RT MIN 3V 10/08/2023 6:29 PM FINDINGS: Bones/joints: There is an impacted radial fracture. No additional fracture or dislocation. No aggressive osseous lesion. Soft tissues: Soft tissues otherwise within normal limits. IMPRESSION: There is an impacted radial fracture.
--- NOTE | 2023-10-08 18:34 | XR_ITS ---
PROCEDURE INFORMATION: Exam: XR Right Wrist Exam date and time: 10/08/2023 6:29 PM Age: 83 years old Clinical indication: Injury or trauma; Fall; Blunt trauma (contusions or hematomas); Wrist; Right; Additional info: Pain TECHNIQUE: Imaging protocol: Radiologic exam of the right wrist. Views: 3 or more views. COMPARISON: No relevant prior studies available. FINDINGS: Bones/joints: Nondisplaced impacted fracture of the distal radial metaphysis. No additional fracture or dislocation. No aggressive osseous lesion. Soft tissues: Soft tissues otherwise within normal limits. IMPRESSION: Nondisplaced impacted fracture of the distal radial metaphysis.
--- NOTE | 2023-10-08 18:35 | XR_ITS ---
PROCEDURE INFORMATION: Exam: XR Right Forearm Exam date and time: 10/08/2023 6:32 PM Age: 83 years old Clinical indication: Injury or trauma; Fall; Blunt trauma (contusions or hematomas); Arm, lower; Right; Additional info: Pain TECHNIQUE: Imaging protocol: Radiologic exam of the right forearm. Views: 2 views. COMPARISON: CR XR HAND RT MIN 3V 10/08/2023 6:31 PM FINDINGS: Bones/joints: Partially visualized impacted radial fracture. No additional fracture or dislocation. No aggressive osseous lesion. Soft tissues: Soft tissues otherwise within normal limits. IMPRESSION: Partially visualized impacted radial fracture.
[2023-10-08 18:45] VITALS: BP 155/51; PULSE 72; RESP 18; TEMP 36.6; O2SAT 97; BMI 20.5
--- NOTE | 2023-10-08 19:06 | EXP.UTC ---
Discharge Plan Disposition Patient Disposition: Home, Self-Care Condition: Good Prescriptions Prescriptions: No Action losartan 100 mg tablet 100 mg PO DAILY 90 Days Qty: 90 amlodipine 10 mg tablet 10 mg PO DAILY aspirin [Adult Low Dose Aspirin] 81 mg tablet,delayed release (DR/EC) 81 mg PO ONCE pravastatin 40 mg tablet 40 mg PO QHS insulin aspart U-100 100 unit/mL solution 0.8 unit SUB-Q DAILY calcium carbonate [Calcium 500] 500 mg calcium (1,250 mg) tablet 500 mg PO DAILY furosemide 20 mg tablet 20 mg PO DAILY levothyroxine 75 mcg tablet 75 mcg PO DAILY hydrochlorothiazide 12.5 mg tablet See Rx Instructions .ROUTE .COMPLEX Qty: 90 1RF Dose Instruction: Take 1 tablet by mouth once daily Rx Instructions: Take 1 tablet by mouth once daily Referrals Follow up/Referrals: Alo Infante MD [Primary Care Provider] - See instructions Pawan Avalos DO [Staff Physician] - See instructions Activity Restrictions/Add. Instructions Additional Instructions/Restrictions: Rest the extremity, apply ice for 15 minutes as tolerated three or four times per day, Elevate the extremity as tolerated while you are resting. Take tylenol or ibuprofen (if you can take this) for pain. Follow up with Dr. Avalos (orthopedics).I put in a referral but you need to call his office and schedule an appointment. Follow up with your regular doctor. GO TO THE ER FOR ANY WORSENING SYMPTOMS Clinical Impressions Clinical Impression: Closed fracture of right distal radius Instructions Patient Instructions: How to Take Care of Your Splint, DI for Distal Radius Fracture Discharge ED Provider: Benjamin Morgan [facility] General Stated complaint: AO 10/08/23 [id number] pain in right hand Mode of Arrival: Ambulatory Source of Information: Patient Limitations: No Limitations Time Seen by Provider: 10/08/23 19:06 Description of Symptoms (Recalled from Triage Doc. by RN): Pt was washing windows and fell. She landed and hurt wrist, forearm, and hand. HEENT Symptoms (Recalled from RN notes): No Resp Symptoms (Recalled from RN notes): No Skin Symptoms (Recalled from RN notes): No MS Symptoms (Recalled from RN notes): Yes Functional Status (Recalled from RN notes): n/a History of Present Illness Provider Complaint: She states that she fell while washing windows at her home today. She fell forward and came down on her right forearm. She has had right wrist pain since then. She denies any other injury or complaints since then. Related Data Home Medications Medication Instructions Recorded Confirmed aspirin 81 mg tablet,delayed 81 mg PO ONCE 08/28/17 10/08/23 release (Adult Low Dose Aspirin) pravastatin 40 mg tablet 40 mg PO QHS 08/28/17 10/08/23 losartan 100 mg tablet 100 mg PO DAILY 90 days #90 tabs 03/12/19 10/08/23 insulin aspart U-100 100 unit/mL 0.8 unit SQ DAILY 08/07/21 10/08/23 subcutaneous solution furosemide 20 mg tablet 20 mg PO DAILY 02/06/23 10/08/23 amlodipine 10 mg tablet 10 mg PO DAILY 04/10/23 10/08/23 calcium carbonate 500 mg calcium 500 mg PO DAILY 07/31/23 10/08/23 (1,250 mg) tablet (Calcium 500) levothyroxine 75 mcg tablet 75 mcg PO DAILY 08/20/23 10/08/23 Previous Rx's Medication Instructions Recorded hydrochlorothiazide 12.5 mg tablet See Rx Instructions .Route 09/02/23 .COMPLEX #90 tabs Allergies Allergy/AdvReac Type Severity Reaction Status Date / Time No Known Allergies Allergy Verified 10/08/23 18:56 Worker's Comp Is this a Worker's Comp case?: No [facility] Disclaimer: The information contained in this section may have been updated after the patient was seen, as this information can be updated by other users. 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 Vulvar lesion Edema Dizziness Right bundle branch block Diabetes mellitus Gastroesophageal reflux disease Hyperlipidemia Hypertensive disorder Surgical History H/O dilation and curettage History of hysteroscopy History of surgery on wrist Hx of thyroidectomy Family History Other Cancer Diabetes Hypertension Social History Smoking Status: Never smoker alcohol intake: never substance use type: denies use current occupational status: retired Travel in the last 8 weeks: None marital status: ROS Obtained: Yes All systems reviewed & no additional complaints except as documented Constitutional Constitutional: Denies chills and Denies fever(s) Eyes Eyes: Denies eye discharge ENT Ears, Nose, Mouth, and Throat: Denies dizziness, Denies otalgia and Denies sore throat Cardiovascular Cardiovascular: Denies chest pain Respiratory Respiratory: Denies shortness of breath, Denies chest congestion, Denies cough, Denies stridor and Denies wheezing Gastrointestinal Gastrointestingal: Denies nausea or vomiting Musculoskeletal Musculoskeletal: Reports as per HPI Integumentary/Breasts Skin/Breast: Denies redness, Denies rash and Denies wounds Neurologic Neurologic: Denies dizziness and Denies paresthesias Allergic/Immunologic Allergic/Immunologic: Denies wheezing Physical Exam General General appearance: alert and in no apparent distress Head Head exam: atraumatic, normocephalic and normal inspection Eye Eye exam: Present normal appearance, PERRL and EOMI ENT ENT exam: Present normal exam, normal oropharynx, mucous membranes moist, TM's normal bilaterally and normal external ear exam Neck Neck exam: Present normal inspection, full ROM and trachea midline; Absent meningismus or lymphadenopathy Chest Chest inspection: Present normal inspection and symmetric chest wall rise; Absent tenderness Respiratory Respiratory exam: Present normal lung sounds bilaterally; Absent respiratory distress Cardiovascular Cardiovascular exam: Present regular rate and normal rhythm; Absent JVD Abdominal Exam Abdominal exam: Present soft and normal bowel sounds; Absent distention, tenderness or guarding Extremities Exam Extremities exam: Present normal capillary refill; Absent calf tenderness Expanded Upper Extremity Exam Right: Elbow exam: Present normal inspection and full ROM; Absent tenderness, pain w/ pronation/supination or tenderness over radial head Forearm/Wrist exam: Present tenderness and swelling; Absent full ROM, abrasion, laceration, ecchymosis, deformity, crepitus, dislocation, erythema, tenderness over anatomical snuff box or pain with axial thumb loading Hand exam: Present full ROM and tenderness; Absent swelling, abrasion, laceration, skin avulsion, ecchymosis, deformity, crepitus, dislocation, erythema, amputation, nail avulsion or subungual hematoma Neuromotor exam: Normal wrist extension, thumb opposition, thumb IP flexion, thumb adduction and fingers 2-5 abduction Neurosensory exam: Normal radial nerve, ulnar nerve and median nerve Vascular exam: Normal capillary refill, radial pulse and ulnar pulse Back Exam Back exam: Present normal inspection; Absent tenderness Neurological Exam Neurological exam: Present alert and oriented X3 Psychiatric Psychiatric exam: Present normal affect and normal mood Skin Skin exam: Present warm, dry, intact and normal color Lymphatic Lymphatic Findings: no adenopathy Medical Decision Making Medical Records Medical records reviewed: No I reviewed the patient's medical records. Marco Inquiry Pt receiving controlled substance: No Vital Signs: 10/08/23 18:45 Temperature 97.8 F Temperature Source Oral Pulse Rate [Right Radial] 72 Respiratory Rate 18 Blood Pressure [Right Arm] 155/51 H Blood Pressure Mean [Right Arm] 85 Blood Pressure Source [Right Arm] Automatic Cuff Blood Pressure Position [Right Arm] Sitting 02 Sat by Pulse Oximetry 97 Oxygen Delivery Method Room Air Orders (Tests/Meds): ORDERS Category Date Time Status XR forearm RT 2V Stat Exams 10/08/23 18:35 Completed XR hand RT min 3V Stat Exams 10/08/23 18:34 Completed XR wrist RT min 3V Stat Exams 10/08/23 18:34 Completed Radiology Data #1: Image(s): Wrist Image Reviewed: Yes I reviewed the patient's radiology image and Yes I have reviewed radiologist's interpretation Preliminary Findings: Abnormal PROCEDURE INFORMATION: Exam: XR Right Wrist Exam date and time: 10/08/2023 6:29 PM Age: 83 years old Clinical indication: Injury or trauma; Fall; Blunt trauma (contusions or hematomas); Wrist; Right; Additional info: Pain TECHNIQUE: Imaging protocol: Radiologic exam of the right wrist. Views: 3 or more views. COMPARISON: No relevant prior studies available. FINDINGS: Bones/joints: Nondisplaced impacted fracture of the distal radial metaphysis. No additional fracture or dislocation. No aggressive osseous lesion. Soft tissues: Soft tissues otherwise within normal limits. IMPRESSION: Nondisplaced impacted fracture of the distal radial metaphysis. #2: Image(s): Hand Image Reviewed: Yes I reviewed the patient's radiology image and Yes I have reviewed radiologist's interpretation Preliminary Findings: Normal/NAD and No Fracture Seen PROCEDURE INFORMATION: Exam: XR Right Hand Exam date and time: 10/08/2023 6:31 PM Age: 83 years old Clinical indication: Injury or trauma; Fall; Blunt trauma (contusions or hematomas); Hand; Right; Additional info: Pain TECHNIQUE: Imaging protocol: Radiologic exam of the right hand. Views: 3 or more views. COMPARISON: CR XR WRIST RT MIN 3V 10/08/2023 6:29 PM FINDINGS: Bones/joints: There is an impacted radial fracture. No additional fracture or dislocation. No aggressive osseous lesion. Soft tissues: Soft tissues otherwise within normal limits. IMPRESSION: There is an impacted radial fracture. #3: Image(s): Forearm Image Reviewed: Yes I reviewed the patient's radiology image and Yes I have reviewed radiologist's interpretation Preliminary Findings: No Fracture Seen PROCEDURE INFORMATION: Exam: XR Right Forearm Exam date and time: 10/08/2023 6:32 PM Age: 83 years old Clinical indication: Injury or trauma; Fall; Blunt trauma (contusions or hematomas); Arm, lower; Right; Additional info: Pain TECHNIQUE: Imaging protocol: Radiologic exam of the right forearm. Views: 2 views. COMPARISON: CR XR HAND RT MIN 3V 10/08/2023 6:31 PM FINDINGS: Bones/joints: Partially visualized impacted radial fracture. No additional fracture or dislocation. No aggressive osseous lesion. Soft tissues: Soft tissues otherwise within normal limits. IMPRESSION: Partially visualized impacted radial fracture. Procedures Risk/Benefits of Procedure(s) Were Explained: Yes Orthopedic Splinting/Casting Injury #1: Side: right Upper Extremity Injury Location: forearm, wrist and hand Upper Extremity Immobilizer: sugar tong splint, sling and applied by nurse/dr felix Post Cast/Splinting Neuro Status: intact and no change Post Cast/Splinting Vasc Status: intact and no change
--- NOTE | 2023-10-08 19:52 | PC.NURSE ---
Placed an orthoglass sugar tong splint with sling. Placement was looked at by abelardo chow APRN.
[2023-10-08 19:53] VITALS: BP 155/51; PULSE 72; RESP 18; TEMP 36.6; O2SAT 97
== END 2023-10-08 19:53 | disposition home or self-care (01) ==
PROVIDERS: Emergency Provider Nurse Practitioner Family; PCP Family Medicine
DX: S52.501A Unspecified fracture of the lower end of right radius, initial encounter for closed fracture (principal); I34.0 Nonrheumatic mitral (valve) insufficiency; E03.9 Hypothyroidism, unspecified; E11.9 Type 2 diabetes mellitus without complications; K21.9 Gastro-esophageal reflux disease without esophagitis; E78.5 Hyperlipidemia, unspecified; I10 Essential (primary) hypertension; W19.XXXA Unspecified fall, initial encounter
CPT/HCPCS: 73090; 73110; 73130; 99204; 99212; G0463

== ENCOUNTER 2023-11-05 11:24 | Outpatient (CLI) | payer MEDICARE, SELFPAY ==
--- NOTE | 2023-11-05 11:28 | XR_ITS ---
FINAL REPORT CLINICAL HISTORY: right hand fx fall 1 month ago COMPARISON: None FINDINGS: AP, lateral and oblique views of the right hand were obtained. There is no prior exam for comparison. There is a cast overlying the wrist which somewhat limits overall bony detail. There is a healing comminuted and impacted fracture of the distal radial metaphysis. Callus formation appears to be present when compared to the prior exam of October 07. No new fracture or dislocation is identified. The joint spaces are preserved. The soft tissues are normal. IMPRESSION: Healing comminuted and impacted fracture of the distal radial metaphysis when compared to prior film of October 07. Reviewed, Interpreted and Dictated by Axel Pate MD Transcribed by Tiffany Dueñas Authenticated and [facility]
== END 2023-11-05 23:59 ==
LOC: RAD 11:25
PROVIDERS: PCP Family Medicine; Visit Provider Orthopaedic Surgery
DX: M79.641 Pain in right hand (principal); S52.501A Unspecified fracture of the lower end of right radius, initial encounter for closed fracture
CPT/HCPCS: 73130

== ENCOUNTER 2023-11-26 09:50 | Outpatient (CLI) | payer MEDICARE, SELFPAY ==
--- NOTE | 2023-11-26 09:53 | XR_ITS ---
FINAL REPORT CLINICAL HISTORY: Rt Wrist Pain, f/u fracture COMPARISON: 10/08/2023 FINDINGS: RIGHT WRIST Three views demonstrate a comminuted impacted fracture of the distal radius. Bony alignment is stable. There is evidence of interval healing. There is also a fracture of the ulnar styloid process. Worsening osteopenia is noted. The visualized joint spaces are normally aligned. The soft tissues are unremarkable. IMPRESSION: Fractures as above with interval healing. Reviewed, Interpreted and Dictated by Juanjose Rousseau III, MD Transcribed by Becky Yadav Authenticated and [facility]
== END 2023-11-26 23:59 | disposition home or self-care (01) ==
LOC: RAD 09:51
PROVIDERS: PCP Family Medicine; Visit Provider Orthopaedic Surgery
DX: M25.531 Pain in right wrist; S52.501A Unspecified fracture of the lower end of right radius, initial encounter for closed fracture
CPT/HCPCS: 73110

== ENCOUNTER 2023-12-26 09:20 | Outpatient (CLI) | payer MEDICARE, SELFPAY ==
--- NOTE | 2023-12-26 09:23 | XR_ITS ---
FINAL REPORT CLINICAL HISTORY: right hand fx COMPARISON: 11/05/2023 FINDINGS: RIGHT HAND Three views demonstrate a subacute distal radial fracture with interval healing. Alignment is unchanged. No other fracture is identified. Visualized joint spaces are normally aligned. IMPRESSION: Distal radial fracture with interval healing. Reviewed, Interpreted and Dictated by Juanjose Rousseau III, MD Transcribed by Mima Jarrell Authenticated and [facility]
== END 2023-12-26 23:59 | disposition home or self-care (01) ==
LOC: RAD 09:21
PROVIDERS: PCP Family Medicine; Visit Provider Physician Assistant Surgical
DX: M79.641 Pain in right hand; S52.501A Unspecified fracture of the lower end of right radius, initial encounter for closed fracture
CPT/HCPCS: 73130

== ENCOUNTER 2024-04-15 17:36 | Outpatient (CLI) | payer MEDICARE, SELFPAY ==
[2024-04-15 16:28] LABS: Basophils # 0.1 K/mm3 (0-0.2); Basophils % 0.9 % (0.1-2.0); Eosinophils # 0.2 K/mm3 (0.0-0.4); Eosinophils % 3.1 % (0.1-12.0); Hematocrit 37.7 % (37.0-47.0); Hemoglobin 11.7 g/dL (12.2-16.2); Lymphocytes # 1.8 K/mm3 (0.7-4.5); Lymphocytes % 23.4 % (10-50); Mean Corpuscular Hemoglobin 30.6 pg (27.0-31.2); Mean Corpuscular Volume 98.7 fl (81-99); Mean Platelet Volume 9.7 fl (7.4-10.4); Monocytes # 0.6 K/mm3 (0.1-1.0); Monocytes % 8.2 % (1.7-9.3); Neutrophils # 4.9 K/mm3 (1.8-7.8); Neutrophils % 64.5 % (37.0-80.0); Platelet Count 401 K/mm3 (142-424); Red Blood Count 3.82 M/mm3 (4.20-5.40); Red Cell Distribution Width 13.7 % (11.5-17.5); White Blood Count 7.7 K/mm3 (4.8-10.8)
[2024-04-15 16:42] LABS: Albumin Level 4.5 g/dl (3.5-5.0); Chloride 104 mmol/L (98-107); Potassium 4.8 mmoL/L (3.5-5.1); Sodium 136 mmol/L (136-145)
[2024-04-15 16:44] LABS: Blood Urea Nitrogen 38 mg/dl (7-17); Estimated Glomerular Filt Rate 43 ml/min (>60); GFR (African American) 52 ML/MIN (>60)
[2024-04-15 16:45] LABS: Alanine Aminotransferase 14 U/L (12-78); Albumin/Globulin Ratio 1.5 (1.1-1.8); Alkaline Phosphatase 127 U/L (38-126); Anion Gap 10.8 mEq/L (5-15); Aspartate Amino Transferase 25 U/L (14-36); Bilirubin,Total 0.7 mg/dl (0.2-1.3); Calcium 9.8 mg/dl (8.4-10.2); Carbon Dioxide 26 mmol/L (22.0-30.0); Glucose 101 mg/dl (74-100); Total Protein,Serum 7.5 g/dl (6.3-8.2)
[2024-04-15 16:59] LABS: Creatinine,Urine Random 17 mg/dL (Not Estab.); Microalbumin < 6.000 mg/L (0-16.7)
[2024-04-15 17:51] LABS: HIV (1&2) Antibody Rapid NONREACTIVE (NONREACTIVE)
[2024-04-17 08:33] LABS: HCV Ab Non Reactive (Non Reactive)
== END 2024-04-15 23:59 | disposition home or self-care (01) ==
LOC: LAB.DROPOF 17:36
PROVIDERS: PCP Internal Medicine; Visit Provider Internal Medicine
DX: B34.9 Viral infection, unspecified (principal); D64.9 Anemia, unspecified; Z00.00 Encounter for general adult medical examination without abnormal findings; E11.9 Type 2 diabetes mellitus without complications; Z96.41 Presence of insulin pump (external) (internal)
CPT/HCPCS: 80053; 82043; 82570; 85025; 86803; 87389

== ENCOUNTER 2024-09-18 10:19 | Outpatient (CLI) | payer MEDICARE, SELFPAY ==
--- NOTE | 2024-09-18 10:23 | CA_ITS ---
APPROVED REPORT EXAM: Comprehensive 2D, Doppler, and color-flow Echocardiogram Plant Associate: Marilyn Kwan RT(R) Ht: 5 ft 3 in Wt: 118lbs BSA: 1.54 BP: 121/45 mmHg Indications: edema, HTN, DM, rheumatic fever, hyperlipidemia, MR, TR, AV disease, MV disease 2D Dimensions LVEF (Beltrán's) 67.80 % F: 54 - 74 LV Volume 57.20 mL F: 46 - 106 LV Volume Index 36.9 mL/m2 F: 29 - 61 LA Volume 43.00 mL LA Volume Index 27.74 mL/m2 (M/F) 16-34 EF AP4 71.70 % EF AP2 63.1 % EF BP 67.8 % GL Strain -23.1 % M-Mode Dimensions RVDd 1.57 cm (0.9-2.6) LA Diam 4.59 cm (1.9-4.0) LVDd 3.38 cm (3.5-5.7) LVDs 2.56 cm (3.5-5.7) IVSd 0.89 cm (0.6-1.1) PWd 0.82 cm (0.6-1.1) EF (Teich) 49.40% FS 24.30% EDV (Teich) 46.80 mL ESV (Teich) 23.70 mL LV Diastology E Decel Time 362 (160-240 msec) E/A Ratio 0.6 Aortic Valve ADALI Index 1.41 cm2/m2 AoV Peak Morgan. 185.0 (50-130 cm/s) AO Peak GR. 13.70 mmHg AO Mean GR. 6.70 (<5 mmHg) AO VTI 39.2 (18-25 cm) ADALI (VTI) 2.22 (2.5-4.5 cm2) Mitral Valve MV E Max Morgan. 105.0 (40-130 cm/s) MV A Velocity 188.0 (40-130 cm/s) E/A Ratio 0.56 MV PHT 106.0 ms Tricuspid Valve TR P. Velocity 275.00 cm/s RAP Estimate 10.00 mmHg RVSP 40.30 mmHg Left Ventricle The left ventricle is normal size. The left ventricular systolic function is normal. The left ventricular ejection fraction is within the normal range. There is increased LV wall thickness. There is normal LV segmental wall motion. Transmitral Doppler flow pattern suggests impaired LV relaxation. LVEF is 60%. Right Ventricle The right ventricle is mildly dilated. The right ventricular systolic function is normal. Atria Left atrium is moderately dilated. Right atrium is mildly dilated. There is no Doppler evidence of interatrial shunt. Aortic Valve The aortic valve is mildly thickened. Aortic sclerosis, but no evidence of aortic stenosis. Mild aortic regurgitation. Mitral Valve Moderate mitral annular calcification is present. The mitral valve leaflets are mildly thickened. The posterior MV leaflet is restricted in motion. Mild mitral stenosis. Mean MV gradient 5 mmHg (HR 70 bpm). Mild mitral regurgitation. Tricuspid Valve Tricuspid valve is grossly normal in structure and function. Mild tricuspid regurgitation. RVSP is 25-30 mmHg. Pulmonic Valve The pulmonary valve is normal in structure. Trace pulmonic regurgitation. Great Vessels The aortic root is not well-visualized. IVC is normal in size and collapses >50% with inspiration. Pericardium There is no pericardial effusion. Other Information Study Quality: Fair Conclusion Normal biventricular systolic function. Mild RV dilation. Biatrial dilation. Mild MR, mild TR, mild AI. Mild MS (mean MV gradient 5 mmHg at HR 70 bpm). RVSP 25-30 mmHg. Electronically signed by : Magy Rios MD 09/29/2024 09:42:49
== END 2024-09-18 23:59 | disposition home or self-care (01) ==
LOC: RT 10:19
PROVIDERS: PCP Internal Medicine; Visit Provider Physician Assistant
DX: I34.0 Nonrheumatic mitral (valve) insufficiency (principal); I07.1 Rheumatic tricuspid insufficiency; R60.0 Localized edema
CPT/HCPCS: 93306

== ENCOUNTER 2024-10-16 09:51 | Outpatient (CLI) | payer MEDICARE, SELFPAY ==
[2024-10-16 11:40] LABS: Anion Gap 14.3 mEq/L (5-15); Blood Urea Nitrogen 38 mg/dl (7-17); Calcium 9.8 mg/dl (8.4-10.2); Carbon Dioxide 24 mmol/L (22.0-30.0); Chloride 104 mmol/L (98-107); Estimated Glomerular Filt Rate 36 ml/min (>60); GFR (African American) 44 ML/MIN (>60); Glucose 94 mg/dl (74-100); Potassium 5.3 mmoL/L (3.5-5.1); Sodium 137 mmol/L (136-145)
== END 2024-10-16 23:59 | disposition home or self-care (01) ==
PROVIDERS: PCP Internal Medicine; Visit Provider Physician Assistant
DX: I10 Essential (primary) hypertension (principal); N18.9 Chronic kidney disease, unspecified
CPT/HCPCS: 36415; 80048

== ENCOUNTER 2025-02-15 09:13 | Outpatient (CLI) | payer MEDICARE, SELFPAY ==
--- OUTSIDE RECORDS SUMMARY | 2024-12-24 12:45 | XMS_ITS | Encounter Summary ---
Author Organization [facility] Address [address] [place] [address] Care Team Providers Care Wharf Operator Name Role Phone Blaine Meyer DO Primary Care Provider + Reason for Visit * Reason Comments Diabetes Encounter Details Date Type Department Care Team (Late st Contact Info) Description 12/24/2024 12:45 PM EDT Office Visit [facility] [address] [place] [address] Kevin Cardona MD [address] [place], [place] [id number] Type 1 diabetes mellitus with hyperglycemia (Primary Dx); Postoperative hypothyroidism; Hypercholesterolemia Social History Tobacco Use Types Packs/Day Years Used Date Smoking Tobacco: Never Passive Smoke Exposure: Never Smokeless Tobacco: Never Alcohol Use Standard Drinks/Week Comments Never 0 (1 standard drink = 0.6 oz pur e alcohol) AUDIT-C Answer Date Recorded Q1: How often do you have a drink containing alc ohol? Never 08/05/2020 Average Number of Drinks Not on file 021 Frequency of Binge Drinking Not on file 07/22 Comments Unknown Sex and Gender Information Value Date Recorded Sex Assigned at Not on file Legal Sex Female 12:30 PM EDT Gender Identity Not on file Sexual Orientation Not on file documented as of this encounter Last Filed Vital Signs Vital Sign Reading Time Taken Comments Blood Pressure 118/64 12/24/2024 12:32 PM EDT Pulse 70 12/24/2024 12:32 PM EDT Temperature - - Respiratory Rate - - Oxygen Saturation 100% 12/24/2024 12: 32 PM EDT Inhaled Oxygen Concentration - - Weight 51.2 kg (112 lb 12.8 oz) 025 12:32 PM EDT Height 157.5 cm (5' 2 ) 12/24/2024 12:3 2 PM EDT Body Mass Index 20.63 12/24/2024 12:32 PM EDT documented in this encounter Progress Notes * Kevin Cardona MD - 12/24/2024 1:10 PM EDTAssociated Problem(s): Type 1 diabetes mellitus with hyperglycemia -Too much glycemic variability the past couple of weeks but it has been during a time of extreme stress after the unexpected passing of her and I suspect that this will smooth out over the coming weeks as her schedule gets a little bit more predictable -Complications include CKD IIIb -For now I am a little bit concerned with the trend of overnight lows so I slightly reduced her basal rate at the early portion of the night and then increased it just before rising -When she is ready for a pump upgrade would recommend getting one that works with the Dexcom G6 so that she can use the pump and hybrid closed-loop -Continue Dexcom G6 CGM with Add2paper 770G, see media tab for settings changes -Continue ARB; blood pressure today 118/64 DM Health Maintenance: Ophtho: last done 05/2024, no known retinopathy, has macular degeneration Monofilament / Foot exam: Completed 03/04/2024 no reported new sores Lipids/Statin: taking a statin with last FLP showing LDL 80 done 07/02/2023 ALBINA: Negative done 07/02/2024 aspirin: taking * Kevin Cardona MD - 12/24/2024 1:08 PM EDTAssociated Problem(s): Hypercholesterolemia -Check nonfasting lipid panel with labs today -For now continue pravastatin 40 mg daily * Kevin Cardona MD - 12/24/2024 1:06 PM EDTAssociated Problem(s): Postoperative hypothyroidism -Check TFTs with labs today -Clinically euthyroid on levothyroxine 75mcg daily * Kevin Cardona MD - 12/24/2024 12:45 PM EDT Chief complaint/Reason for consult: T1DM and hypothyroidism HPI: Ms. Lima is an 84-year-old female with type 1 diabetes mellitus and postoperative hypothyroidism here for follow-up. She was last seen 09/30/2024 by different provider and reports since that time her unexpectedly due to advanced pancreatic cancer. Her blood glucoses were quite a bit higher just after this due to stress and change in diet. # Astq2FF, controlled with known complications # CKD IIIb - Diagnosed: 1965 - Current regimen includes: Medtronic 770 G with Dexcom G6 CGM - Previously declined Medtronic CGM so that she could use the pump in a hybrid closed-loop and continues to want to use the Dexcom CGM - Compliance with medications is good - HbA1c: 7.0% today CGM Download -Dates reviewed: 12/11/2024-12/24/2024 -Data: 95% wear time, average glucose 170 mg/dL, GMI 7.4%, coefficient of variation 38.0%, 12% veryhigh, 24% high, 62% time in range, 2% low and 1% very low -Interpretation: Occasional downtrending fasting glucose with borderline low, frequent postprandialhyperglycemia Pump download -Dates reviewed: 12/11/2024-12/24/2024 -Data: Using manual mode, total daily dose 24.2 units, 71% bolus and 29% basal, changing set every 4 days -See media tab for insulin delivery settings - Patient has symptoms with lows - Patient denies neuropathy - Patient denies gastroparesis - Patient reports rotating infusion set sites, denies bruising, nodules, leaking of insulin - Patient without known ASCVD - taking ARB; blood pressure today 118/64 DM Health Maintenance: Ophtho: last done 05/2024, no known retinopathy, has macular degeneration Monofilament / Foot exam: Completed 03/04/2024 no reported new sores Lipids/Statin: taking a statin with last FLP showing LDL 80 done 07/02/2023 ALBINA: Negative done 07/02/2024 aspirin: taking # Hypercholesterolemia - Labs done 07/02/2023 showed total cholesterol 201, LDL 80, HDL 97 and triglycerides 56 - Compliant with pravastatin 40 mg daily, denies myalgias # Hypothyroidism, postoperative - Surgery ~2019 for benign nodule - Is currently on levothyroxine 75 mcg daily - Reports good compliance with levothyroxine and takes it at the same time every day, on an empty stomach, not with hot beverages - Denies taking biotin supplement - Denies changes in fatigue, constipation, edema - TSH 1.290 and free T4 1.290 Done 07/02/2024 while taking levothyroxine 75 mcg daily Past medical history, past surgical history, family history and social history reviewed within thisencounter. Review of Systems Constitutional: Negative for activity change and unexpected weight change. HENT: Negative for trouble swallowing. Eyes: Negative for visual disturbance. Respiratory: Negative for shortness of breath. Cardiovascular: Negative for chest pain. Gastrointestinal: Negative for abdominal pain. Endocrine: Negative for cold intolerance and heat intolerance. Genitourinary: Negative for dysuria. Musculoskeletal: Negative for gait problem. Skin: Positive for rash (ankles). Neurological: Negative for numbness. Psychiatric/Behavioral: Positive for dysphoric mood. BP 118/64 (BP Location: Left arm, Patient Position: Sitting, Cuff Size: Adult) Pulse 70 Ht 157.5 cm (62 ) Wt 51.2 kg (112 lb 12.8 oz) SpO2 100% BMI 20.63 kg/m?? Physical Exam Vitals reviewed. Constitutional: General: She is not in acute distress. HENT: Head: Normocephalic. Nose: Nose normal. Eyes: Conjunctiva/sclera: Conjunctivae normal. Cardiovascular: Rate and Rhythm: Normal rate. Pulmonary: Effort: Pulmonary effort is normal. Abdominal: Tenderness: There is no guarding. Musculoskeletal: General: No deformity. Skin: General: Skin is warm and dry. Neurological: Mental Status: She is alert and oriented to person, place, and time. Psychiatric: Mood and Affect: Mood normal. Labs and images reviewed as noted in the HPI Assessment and plan: Diagnoses and all orders for this visit: 1. Type 1 diabetes mellitus with hyperglycemia (Primary) Assessment & Plan: -Too much glycemic variability the past couple of weeks but it has been during a time of extreme stress after the unexpected passing of her and I suspect that this will smooth out over the coming weeks as her schedule gets a little bit more predictable -Complications include CKD IIIb -For now I am a little bit concerned with the trend of overnight lows so I slightly reduced her basal rate at the early portion of the night and then increased it just before rising -When she is ready for a pump upgrade would recommend getting one that works with the Dexcom G6 so that she can use the pump and hybrid closed-loop -Continue Dexcom G6 CGM with Add2paper 770G, see media tab for settings changes -Continue ARB; blood pressure today 118/64 DM Health Maintenance: Ophtho: last done 05/2024, no known retinopathy, has macular degeneration Monofilament / Foot exam: Completed 03/04/2024 no reported new sores Lipids/Statin: taking a statin with last FLP showing LDL 80 done 07/02/2023 ALBINA: Negative done 07/02/2024 aspirin: taking Orders: - POC Glycosylated Hemoglobin (Hb A1C) - POC Glucose, Blood - Comprehensive Metabolic Panel; Future - Microalbumin / Creatinine Urine Ratio - Urine, Clean Catch; Future - CBC & Differential; Future - NovoLOG 100 UNIT/ML injection; USE IN INSULIN PUMP MAX OF 40 UNITS PER DAY DIRECTED Dispense: 40 mL; Refill: 1 - losartan (COZAAR) 100 MG tablet; Take 1 tablet by mouth Daily. Dispense: 90 tablet; Refill: 3 - Comprehensive Metabolic Panel - Microalbumin / Creatinine Urine Ratio - Urine, Clean Catch - CBC & Differential 2. Postoperative hypothyroidism Assessment & Plan: -Check TFTs with labs today -Clinically euthyroid on levothyroxine 75mcg daily Orders: - TSH; Future - T4, Free; Future - TSH - T4, Free 3. Hypercholesterolemia Assessment & Plan: -Check nonfasting lipid panel with labs today -For now continue pravastatin 40 mg daily Orders: - Lipid Panel; Future - pravastatin (PRAVACHOL) 40 MG tablet; Take 1 tablet by mouth Daily. Dispense: 90 tablet; Refill: 3 - Lipid Panel Return in about 4 months (around 04/25/2025) for T1DM. Please note that portions of this note may have been completed with a voice recognition program. Efforts were made to edit the dictations, but occasionally words are mistranscribed. Electronically signed by: Kevin Cardona MD Addendum Labs 12/24/2024 Creatinine 1.51 Sodium 135 LFTs within normal limits TSH 1.230, FT4 1.23 Total cholesterol 170, HDL 79, LDL 75 and triglycerides 89 Patient with anemia, hemoglobin 10.7 ALBINA negative Kidney function continues to decline, would see nephrology Recommend PCP follow-up for anemia and hyponatremia Results mailed to patient documented in this encounter Plan of Treatment Upcoming Encounters Date Type Department Care Team (Late st Contact Info) Description 05/20/2025 11:30 AM EDT Office Visit [facility] [address] [place] [address] Kevin Cardona MD [address] [place] [address] documented as of this encounter Procedures Procedure Name Priority Date/Time Associated Diagnosis Comments CBC WITH AUTO DIFFERENTIAL Routine 12/24/2024 1:05 PM EDT Type 1 diabetes mellitus with hyperglycemia MICROALBUMIN / CREATININE URINE RATIO Routine 12/24/2024 1:05 PM EDT Type 1 diabetes mellitus with hyperglycemia CBC AND DIFFERENTIAL Routine 12/24/2024 1:05 PM EDT Type 1 diabetes mellitus with hyperglycemia TSH Routine 12/24/2024 1:05 PM EDT Postoperative hypothyroidism T4, FREE Routine 12/24/2024 1:05 PM EDT Postoperative hypothyroidism LIPID PANEL Routine 12/24/2024 1:05 PM EDT Hypercholesterolemia COMPREHENSIVE METABOLIC PANEL Routine 12/24/2024 1:05 PM EDT Type 1 diabetes mellitus with hyperglycemia POCT GLYCOSYLATED HEMOGLOBIN (HGB A1C) Routine 12/24/2024 12:45 PM EDT Type 1 diabetes mellitus with hyperglycemia POCT GLUCOSE, BLD (NON STRIP) Routine 12/24/2024 12:44 PM EDT Type 1 diabetes mellitus with hyperglycemia documented in this encounter Results * (ABNORMAL) CBC Auto Differential (12/24/2024 1:05 PM EDT) [facility] WBC 8.24 3.40 - 10.80 10*3/mm3 12/24/2024 11:15 PM EDT [facility] RBC 3.48(L) 3.77 - 5.28 10*6/mm3 12/24/2024 11:15 PM EDT [facility] Hemoglobin 10.7(L) 12.0 - 15.9 g/dL 12/24/2024 11:15 PM EDT [facility] Hematocrit 32.8(L) 34.0 - 46.6 % 12/24/2024 11:15 PM EDT [facility] MCV 94.3 79.0 - 97.0 fL 12/24/2024 11:15 PM EDT [facility] MCH 30.7 26.6 - 33.0 pg 12/24/2024 11:15 PM EDT [facility] MCHC 32.6 31.5 - 35.7 g/dL 12/24/2024 11:15 PM EDT [facility] RDW 12.1(L) 12.3 - 15.4 % 12/24/2024 11:15 PM EDT [facility] RDW-SD 41.8 37.0 - 54.0 fl 12/24/2024 11:15 PM EDT [facility] MPV 10.6 6.0 - 12.0 fL 12/24/2024 11:15 PM EDT [facility] Platelets 278 140 - 450 10*3/mm3 12/24/2024 11:15 PM [facility] Neutrophil % 63.0 42.7 - 76.0 % 12/24/2024 11:15 PM [facility] Lymphocyte % 23.2 19.6 - 45.3 % 12/24/2024 11:15 PM [facility] Monocyte % 9.5 5.0 - 12.0 % 12/24/2024 11:15 PM [facility] Eosinophil % 2.9 0.3 - 6.2 % 12/24/2024 11:15 PM [facility] Basophil % 1.0 0.0 - 1.5 % 12/24/2024 11:15 PM [facility] Immature Grans % 0.4 0.0 - 0.5 % 12/24/2024 11:15 PM [facility] Neutrophils, Absolute 5.20 1.70 - 7.00 10*3/mm3 12/24/2024 11:15 PM [facility] Lymphocytes, Absolute 1.91 0.70 - 3.10 10*3/mm3 12/24/2024 11:15 PM [facility] Monocytes, Absolute 0.78 0.10 - 0.90 10*3/mm3 12/24/2024 11:15 PM [facility] Eosinophils, Absolute 0.24 0.00 - 0.40 10*3/mm3 12/24/2024 11:15 PM [facility] Basophils, Absolute 0.08 0.00 - 0.20 10*3/mm3 12/24/2024 11:15 PM [facility] Immature Grans, Absolute 0.03 0.00 - 0.05 10*3/mm3 12/24/2024 11:15 PM [facility] nRBC 0.0 0.0 - 0.2 /100 WBC 12/24/2024 11:15 PM [facility] Blood Venipuncture / Unknown 12/24/2024 1:05 PM EDT 12/24/2024 1:06 PM EDT Kevin Cardona MD LAB BLOOD ORDERABLES Final Result [facility]
[address] [place] [address], * (ABNORMAL) Lipid Panel (12/24/2024 1:05 PM EDT) Total Cholesterol 170 0 - 200 mg/dL 12/25/2024 12:28 AM EDT [facility] Triglycerides 89 0 - 150 mg/dL 12/25/2024 12:28 AM EDT [facility] HDL Cholesterol 79(H) 40 - 60 mg/dL 12/25/2024 12:28 AM EDT [facility] LDL Cholesterol 75 0 - 100 mg/dL 12/25/2024 12:28 AM EDT [facility] VLDL Cholesterol 16 5 - 40 mg/dL 12/25/2024 12:28 AM EDT [facility] LDL/HDL Ratio 0.93 12/25/2024 12:28 AM EDT [facility] Blood Structure of left upper limb / Unknown Venipuncture / Unknown 12/24/2024 1:05 PM EDT 12/24/2024 1:06 PM EDT Narrative [facility] - 12/25/2024 12:28 AM EDT Cholesterol Reference Ranges (U.S. Department of Health and Human Services ATP III Classifications) Desirable <200 mg/dL Borderline High 200-239 mg/dL High Risk >240 mg/dL Triglyceride Reference Ranges (U.S. Department of Health and Human Services ATP III Classifications) Normal <150 mg/dL Borderline High 150-199 mg/dL High 200-499 mg/dL Very High >500 mg/dL HDL Reference Ranges (U.S. Department of Health and Human Services ATP III Classifications) Low <40 mg/dl (major risk factor for CHD) High >60 mg/dl ('negative' risk factor for CHD) LDL Reference Ranges (U.S. Department of Health and Human Services ATP III Classifications) Optimal <100 mg/dL Near Optimal 100-129 mg/dL Borderline High 130-159 mg/dL High 160-189 mg/dL Very High >189 mg/dL LDL is calculated using the NIH LDL-C calculation. us Kevin Cardona MD LAB BLOOD ORDERABLES Final Result Performing Organization Address City/[facility]/ZIP Co de Phone Number [facility]
[address] [place] [address], [place] [phone] * Microalbumin / Creatinine Urine Ratio - Urine, Clean Catch (12/24/2024 1:05 PM EDT) Microalbumin/C reatinine Ratio 12/25/2024 12:40 AM EDT [facility] Comment:Unable to calculate Creatinine, Urine 36.3 mg/dL 12/25/2024 12:40 AM EDT [facility] Microalbumin, Urine <1.2 mg/dL 12/25/2024 12:40 AM EDT [facility] Urine Urine specimen obtained by clean catch procedure / Unknown Collection / Unknown 12/24/2024 1:05 PM EDT 12/24/2024 1:06 PM EDT us Kevin Cardona MD URINE ORDERABLES Final Resu lt Performing Organization Address [facility]/ZIP Co de Phone Number [facility]
[address] [place] [address], [place] [phone] * T4, Free (12/24/2024 1:05 PM EDT) Free T4 1.23 0.92 - 1.68 ng/dL 12/25/2024 12:36 AM EDT [facility] Blood Structure of left upper limb / Unknown Venipuncture / Unknown 12/24/2024 1:05 PM EDT 12/24/2024 1:06 PM EDT us Kevin Cardona MD LAB BLOOD ORDERABLES Final Result [facility]
[address] [place] [address], * TSH (12/24/2024 1:05 PM EDT) [facility] TSH 1.230 0.270 - 4.200 uIU/mL 12/25/2024 12:36 AM EDT [facility] Blood Structure of left upper limb / Unknown Venipuncture / Unknown 12/24/2024 1:05 PM EDT 12/24/2024 1:06 PM EDT Kvein Cardona MD LAB BLOOD ORDERABLES Final Result [facility]
[address] [place] [address], * (ABNORMAL) Comprehensive Metabolic Panel (12/24/2024 1:05 PM EDT) [facility] Glucose 223(H) 65 - 99 mg/dL 12/25/2024 12:56 AM EDT [facility] BUN 38.0(H) 8.0 - 23.0 mg/dL 12/25/2024 12:56 AM [facility] Creatinine 1.51(H) 0.57 - 1.00 mg/dL 12/25/2024 12:56 AM [facility] Sodium 135(L) 136 - 145 mmol/L 12/25/2024 12:56 AM EDT [facility] Potassium 5.1 3.5 - 5.2 mmol/L 12/25/2024 12:56 AM EDT [facility] Chloride 101 98 - 107 mmol/L 12/25/2024 12:56 AM EDT [facility] CO2 21.2(L) 22.0 - 29.0 mmol/L 12/25/2024 12:56 AM EDT [facility] Calcium 9.2 8.6 - 10.5 mg/dL 12/25/2024 12:56 AM EDT [facility] Total Protein 7.1 6.0 - 8.5 g/dL 12/25/2024 12:56 AM [facility] Albumin 4.1 3.5 - 5.2 g/dL 12/25/2024 12:56 AM [facility] ALT (SGPT) 5 1 - 33 U/L 12/25/2024 12:56 AM [facility] AST (SGOT) 16 1 - 32 U/L 12/25/2024 12:56 AM [facility] Alkaline Phosphatase 101 39 - 117 U/L 12/25/2024 12:56 AM [facility] Total Bilirubin 0.4 0.0 - 1.2 mg/dL 12/25/2024 12:56 AM [facility] Globulin 3.0 gm/dL 12/25/2024 12:56 AM [facility] A/G Ratio 1.4 g/dL 12/25/2024 12:56 AM [facility] BUN/Creatinine Ratio 25.2(H) 7.0 - 25.0 12/25/2024 12:56 AM [facility] Anion Gap 12.8 5.0 - 15.0 mmol/L 12/25/2024 12:56 AM [facility] eGFR 34.4(L) >60.0 mL/min/1.7 3 12/25/2024 12:56 AM [facility] Blood Structure of left upper limb / Unknown Venipuncture / Unknown 12/24/2024 1:05 PM EDT 12/24/2024 1:06 PM [facility] - 12/25/2024 12:56 AM EDT GFR Categories in Chronic Kidney Disease (CKD) GFR Category GFR (mL/min/1.73) Interpretation G1 90 or greater Normal or high (1) G2 60-89 Mild decrease (1) G3a 45-59 Mild to moderate decrease G3b 30-44 Moderate to severe decrease G4 15-29 Severe decrease G5 14 or less Kidney failure (1)In the absence of evidence of kidney disease, neither GFR category G1 or G2 fulfill the criteria for CKD. eGFR calculation 2020 CKD-EPI creatinine equation, which does not include race as a factor us Kevin Cardona MD LAB BLOOD ORDERABLES Final Result [facility]
[address] [place] [address], [place] [phone] * (ABNORMAL) POC Glycosylated Hemoglobin (Hb A1C) (12/24/2024 12:45 PM EDT) Hemoglobin A1C 7.0(A) 4.5 - 5.7 % [facility] Lot Number [id number] [facility] Expiration Date 09/16/[address] [facility] Blood 12/24/2024 12:4 5 PM EDT us Kevin Cardona MD POINT OF CARE TEST ORDERABL ES Final Result [facility]
[address] [place] [address], [place] [phone] * (ABNORMAL) POC Glucose, Blood (12/24/2024 12:44 PM EDT) Glucose 251(A) 70 - 130 mg/dL Lot Number [id number] Expiration Date 07/04/25 Blood 12/24/2024 12:4 4 PM EDT us Kevin Cardona MD POINT OF CARE TEST ORDERABL ES Final Result documented in this encounter Visit Diagnoses Diagnosis Type 1 diabetes mellitus with hyperglycemia- Primary Postoperative hypothyroidism Postsurgical hypothyroidism Hypercholesterolemia Pure hypercholesterolemia documented in this encounter Care Teams Wharf Operator Relationship Specialty Start Date End Date Blaine Meyer DO [address] [place] [address] PCP - General Internal Medicine 09/30/24 documented as of this encounter
--- OUTSIDE RECORDS SUMMARY | 2025-02-15 09:15 | XMS_ITS ---
Author Organization Unknown TREATMENT PLAN [facility] Start Date Provider Encounter for Check-up [id number] [facility]
--- OUTSIDE RECORDS SUMMARY | 2025-02-15 09:15 | XMS_ITS | Encounter Summary ---
Author Organization Healthcare Address [address] [place] [address] Care Team Providers Care Intelligence Operations Name Role Phone Alo Infante MD Primary Care Provider + [phone] Encounter Details Date Type Department Care Team (Late st Contact Info) Description 01/20/2025 Orders Only [facility] [address] [place] [phone] Bonita Delgadillo Stage 3 chronic kidney disease, unspecified whether stage 3a or 3b CKD (CMS/HCC) (Primary Dx); Vitamin D insufficiency Social History Tobacco Use Types Packs/Day Years Used Date Smoking Tobacco: Never Assessed Comments Unknown Sex and Gender Information Value Date Recorded Sex Assigned at Not on file Legal Sex Female 8:11 PM EDT Gender Identity Not on file Sexual Orientation Not on file documented as of this encounter Plan of Treatment Upcoming Encounters Date Type Department Care Team (Late st Contact Info) Description 02/26/2025 9:00 AM EDT Office Visit [facility] [address] [place] [phone] Roshni Sánchez, POSITION CLERK [address] [address] Scheduled Orders Name Type Priority Associated Diagnoses Orde r Schedule Renal Function Panel, Plasma Lab Routine Stage 3 chronic kidney disease, unspecified whether stage 3a or 3b CKD (CMS/HCC) Expected: 01/20/2025 (Approximate), Expires: 07/23/2026 CBC and Differential Lab Routine Stage 3 chronic kidney disease, unspecified whether stage 3a or 3b CKD (CMS/HCC) Expected: 01/20/2025 (Approximate), Expires: 07/23/2026 Creatinine, Random, Urine Lab Routine Stage 3 chronic kidney disease, unspecified whether stage 3a or 3b CKD (CMS/HCC) Expected: 01/20/2025 (Approximate), Expires: 07/23/2026 Protein, Random, Urine with Creatinine Lab Routine Stage 3 chronic kidney disease, unspecified whether stage 3a or 3b CKD (CMS/HCC) Expected: 01/20/2025 (Approximate), Expires: 07/23/2026 Urinalysis with reflex microscopic (Culture NOT Included) Lab Routine Stage 3 chronic kidney disease, unspecified whether stage 3a or 3b CKD (CMS/HCC) Expected: 01/20/2025 (Approximate), Expires: 07/23/2026 PTH Intact Total Lab Routine Stage 3 chronic kidney disease, unspecified whether stage 3a or 3b CKD (CMS/HCC) Vitamin D insufficiency Expected: 01/20/2025 (Approximate), Expires: 07/23/2026 Vitamin D 25 Hydroxy Lab Routine Stage 3 chronic kidney disease, unspecified whether stage 3a or 3b CKD (CMS/HCC) Vitamin D insufficiency Expected: 01/20/2025 (Approximate), Expires: 07/23/2026 documented as of this encounter Visit Diagnoses Diagnosis Stage 3 chronic kidney disease, unspecified whether stage 3a or 3b CKD (CMS/HCC)- Primary Vitamin D insufficiency documented in this encounter Care Teams Intelligence Operations Relationship Specialty Start Date End Date Alo Infante MD [address] [place] [address] PCP - General 12/02/20 documented as of this encounter
--- OUTSIDE RECORDS SUMMARY | 2025-02-15 09:16 | XMS_ITS | Clinical Summary ---
Author Organization Healthcare Address [address] [place] [address] Care Team Providers Care Fur Tanner Name Role Phone Alo Infante MD Primary Care Provider + [phone] Encounters Date Type Department Care Team Description 01/20/2025 Orders Only [facility] [id number] [phone] Bonita Delgadillo Stage 3 chronic kidney disease, unspecified whether stage 3a or 3b CKD (CMS/HCC) (Primary Dx); Vitamin D insufficiency from Last 3 Months Social History Tobacco Use Types Packs/Day Years Used Date Smoking Tobacco: Never Assessed Comments Unknown Sex and Gender Information Value Date Recorded Sex Assigned at Not on file Legal Sex Female 8:11 PM EDT Gender Identity Not on file Sexual Orientation Not on file Plan of Treatment Upcoming Encounters Date Type Department Care Team (Late st Contact Info) Description 02/26/2025 9:00 AM EDT Office Visit [facility] [address] [place] [phone] Roshni Sánchez, FELT CHECKER [address] [address] Health Maintenance Due Date Last Done Comments [facility]-Bone Density Scan 1942 [facility]-Depression Screening 1942 [facility]-Medicare Annual Wellness (AWV) 1942 [facility]-/Child/Adol SDOH Screenings 1942 [facility]- SDOH Screenings 02/22/1960 [facility]-Adult SDOH Screenings 02/22/1960 [facility]-RSV Vaccine: 60+ Years or (1 - 1-dose 75+ series) 2017 [id number] Vaccine ( season) 2024 04/25/2022, 02/12/2022, 05/03/2021, Additional history exists [facility]-Influenza Vaccine (#1) 03/22/202504/14, 04/12/2023, 04/30/2022, Additional history exists [facility]-DTaP,Tdap,and Td Vaccines (2 - Td or Tdap) 11/20/2028 11/20/2018 [facility]-Zoster Vaccines Completed 09/21/2021, [facility]-Pneumococcal Vaccine: 50+ Years Completed 07/09/2022, 07/10/2021 HPV Vaccines Aged Out No longer eligi ble based on patient's age to complete this topic [facility]-HIB Vaccines Aged Out No longer e ligible based on patient's age to complete this topic [facility]-Hepatitis A Vaccines Aged Out No longer eligible based on patient's age to complete this topic [facility]-IPV Vaccines Aged Out No longer e ligible based on patient's age to complete this topic [facility]-Rotavirus Vaccines Aged Out No lo nger eligible based on patient's age to complete this topic Insurance Care Teams Fur Tanner Relationship Specialty Start Date End Date Alo Infante MD [address] [place], [place] [id number] PCP - General 12/02/20
--- OUTSIDE RECORDS SUMMARY | 2025-02-15 09:16 | XMS_ITS | Encounter Summary ---
[facility] Organization [facility] Address [address] [place] [address] Care Team Providers Care Workforce Planner Name Role Phone Blaine Meyer DO Primary Care Provider + Encounter Details Date Type Department Care Team (Late st Contact Info) Description 12/26/2024 Results Follow-Up [facility] [address] [place] [address] Kevin Cardona MD [address] [place] [address] Social History Tobacco Use Types Packs/Day Years [...] Description 05/20/2025 11:30 AM EDT Office Visit [facility] [address] [place] [phone] Kevin Cardona MD [address] [place] [address] documented as of this encounter Visit Diagnoses Not on filedocumented in this encounter Care Teams Workforce Planner Relationship Specialty Start Date End Date Blaine Meyer DO [address] [place] [address] [place] [id number] PCP - General Internal Medicine 09/30/24 documented as of this encounter
--- OUTSIDE RECORDS SUMMARY | 2025-02-15 09:16 | XMS_ITS | Encounter Summary ---
Author Organization [facility] Address [address] [place] [address] Care Team Providers Care Helper Animal Laboratory Name Role Phone Blaine Meyer DO Primary Care Provider + Encounter Details Date Type Department Care Team (Late st Contact Info) Description 10/01/2024 Results Follow-Up [facility] [address] [facility] [address] [place] [address] Berta Mack PA [address] [facility] [address] [place], [place] [id number] Social History Tobacco Use Types Packs/Day Years [...] on file documented as of this encounter Progress Notes * Berta Mack PA - 10/01/2024 9:36 AM EDT Please let her know that her CBC showed that her blood counts are stable but she is anemic. She needs to discuss this with her PCP. Thank you documented in this encounter Plan of Treatment Upcoming Encounters Date Type Department Care Team (Late st Contact Info) Description 05/20/2025 11:30 AM EDT Office Visit [facility] [address] [phone] Kevin Cardona MD [address] [phone] documented as of this encounter Visit Diagnoses Not on filedocumented in this encounter Care Teams Helper Animal Laboratory Relationship Specialty Start Date End Date Blaine Meyer DO [address] [place] [id number] PCP - General Internal Medicine 09/30/24 documented as of this encounter
--- OUTSIDE RECORDS SUMMARY | 2025-02-15 09:16 | XMS_ITS | Encounter Summary ---
Author Organization [facility] Address [address] [place] [address] Care Team Providers Care Community Health Nurse Supervisor Name Role Phone Blaine Meyer DO Primary Care Provider + Encounter Details Date Type Department Care Team (Latest Contact Info) Description 12/24/2024 Travel Social History Tobacco Use Types Packs/Day Years [...] Description 05/20/2025 11:30 AM EDT Office Visit [facility] [address] [place] [address] Kevin Cardona MD [address] [place] [address] documented as of this encounter Visit Diagnoses Not on filedocumented in this encounter Care Teams Community Health Nurse Supervisor Relationship Specialty Start Date End Date Blaine Meyer DO [address] [place] [address] [place] [address] PCP - General Internal Medicine 09/30/24 documented as of this encounter
--- OUTSIDE RECORDS SUMMARY | 2025-02-15 09:16 | XMS_ITS | Clinical Summary ---
Author Organization [facility] Address [address] [place] [address] Care Team Providers Care Chemical Dependency Counselor Name Role Phone Blaine Meyer DO Primary Care Provider + Allergies No known active allergies Medications aspirin 81 MG EC tablet Take 1 tablet by mouth Daily. Active Insulin Infusion Pump (MiniMsmartclip 530G Insulin Pump) device Medtronic 770G Insulin Pump: Mn 0.3, 3a 0.275, 6a 0.3, 8a 0.425, 3p 0.375, 8p 0.35; bolus 1:10 bfast, 1:25 lunch, 1:25 supper; ISF 12a 60, 4p 75; target 12a 110-120, 930p 120-140, AIT 4h Active hydroCHLOROthiazid e (HYDRODIURIL) 12.5 MG tablet Take 1 tablet by mouth Daily. Active furosemide (LASIX) 20 MG tablet Take 1 tablet by mouth Daily. 4 Active amLODIPine (NORVASC) 10 MG tablet Take 1 tablet by mouth Daily. 4 Active Insulin Glargine (Lantus SoloStar) 100 UNIT/ML injection pen Inject 7 units at bedtime 15 mL 4 Active Insulin Pen Needle (Pen [place]) 31G X 6 MM misc Use 1 daily 30 each 4 Active Insulin Pen Needle (BD Pen Needle Micro U/F) 32G X 6 MM misc Use 1 each Daily. 90 each 3 4 Active levothyroxine (SYNTHROID, LEVOTHROID) 75 MCG tabletIndications: Postoperative hypothyroidism TAKE 1 TABLET BY MOUTH ONCE DAILY ON AN EMPTY STOMACH 30 tablet 11 4 Active Continuous Glucose Sensor (Dexcom G6 Sensor)Indications :Type 1 diabetes mellitus with hyperglycemia Use 1 each Every 10 (Ten) Days. 9 each 3 4 Active Continuous Glucose Transmitter (Dexcom G6 Transmitter) miscIndications:Ty pe 1 diabetes mellitus with hyperglycemia Use 1 each Every 3 (Three) Months. 1 each 3 4 Active NovoLOG 100 UNIT/ML injectionIndicatio ns:Type 1 diabetes mellitus with hyperglycemia USE IN INSULIN PUMP MAX OF 40 UNITS PER DAY DIRECTED 40 mL 1 5 Active pravastatin (PRAVACHOL) 40 MG tabletIndications: Hypercholesterolem ia Take 1 tablet by mouth Daily. 90 tablet 3 5 Active losartan (COZAAR) 100 MG tabletIndications: Type 1 diabetes mellitus with hyperglycemia Take 1 tablet by mouth Daily. 90 tablet 3 5 Active Active Problems Problem Noted Date Diagnosed Date Stage 3b chronic kidney disease 11/22/2023 Assessment & Plan (11/22/2023 11:46 AM EDT): -Check BMP today -Counseled to minimize NSAID use and keep good hydration Type 1 diabetes mellitus with hyperglycemia 12/2021 Assessment & Plan (12/24/2024 1:10 PM EDT): -Too much glycemic variability the past couple [...] hybrid closed-loop -Continue Dexcom G6 CGM with Snipi 770G, see media tab for settings changes -Continue ARB; blood pressure today 118/64 DM Health Maintenance: Ophtho: last done 05/2024, no known retinopathy, has macular degeneration Monofilament / Foot exam: Completed 03/04/2024 no reported new sores Lipids/Statin: taking a statin with last FLP showing LDL 80 done 07/02/2023 ALBINA: Negative done 07/02/2024 aspirin: taking Assessment & Plan (10/01/2024 2:05 PM EDT): Diabetes is stable. Continue current treatment regimen. Overall A1c is controlled and acceptable for patient's age. CGM report does show a slight trend up in the water tester hours. Increased basal insulin rate slightly from 0.20 to 0.25 from midnight to 6 AM. Discussed some alternative breakfast foods she can try that would be lower in carbohydrates and higher in protein, to avoid the postprandial elevations after breakfast. Patient is up-to-date on screening labs, eye exam and foot exam. Diabetes will be reassessed in 3 months. Assessment & Plan (07/02/2024 2:30 PM EST): -Patient with reasonable control for her age -Complications include known CKD -I have a more relaxed glycemic target given her age -For some reason her bolus wizard was turned off so she was manually entering bolus insulin; I turned the bolus wizard back on today and adjusted the carbohydrate ratio to better match which she has been doing for the past couple of weeks which ended up being a significant increase in insulin with meals from what was entered as her carbohydrate ratio, I notified her of the significant change I made and that she gets lows after meals she should call me immediately so that we can reduce her carbohydrate ratio -Patient declines hybrid closed-loop pump system at this time and prefers using manual mode with Dexcom, I do think hybrid closed-loop pump would be very beneficial for -Continue losartan; blood pressure today 124/72 DM Health Maintenance: Ophtho: last done 05/2024, no known retinopathy, has macular degeneration Monofilament / Foot exam: Completed 03/04/2024 no reported new sores Lipids/Statin: taking a statin with last FLP showing LDL 80 done 07/02/2023 ALBINA: Negative done 08/08/2023 aspirin: taking Assessment & Plan (03/05/2024 12:10 PM EDT): -Patient with reasonable control for her age although I am still concerned with a few too many lows -Will reduce carbohydrate ratio in the afternoon/evening -Recommend consideration of Medtronic 780 G with sensor so that she can use hybrid closed-loop pump; Medtronic to discuss with her -For now continue Medtronic 770 G with Dexcom CGM with setting changes as noted on media tab scanned sheet -Continue losartan; blood pressure today 112/60 DM Health Maintenance: Ophtho: last done 07/20/2023, no known retinopathy, has macular degeneration Monofilament / Foot exam: Completed 07/06/2022 no reported new sores Lipids/Statin: taking a statin with last FLP showing LDL 80 done 07/02/2023 ALBINA: Negative done 08/08/2023 aspirin: taking Assessment & Plan (11/22/2023 11:46 AM EDT): -Patient being a few too many lows which is leading to borderline highs -Will reduce insulin delivery settings and adjust target glucoses -Recommend consideration of Medtronic 780 G with sensor so that she can use hybrid closed-loop pump; Medtronic to discuss with her -For now continue Medtronic 770 G with Dexcom CGM with setting changes as noted on media tab scanned sheet -Continue losartan; blood pressure today 120/64 DM Health Maintenance: Ophtho: last done 07/20/2023, no known retinopathy, has macular degeneration Monofilament / Foot exam: Completed today Lipids/Statin: taking a statin with last FLP showing LDL 80 done 07/02/2023 ALBINA: Negative done 08/08/2023 TSH: 0.428 and free T42.37 Done 08/08/2023 aspirin: taking Assessment & Plan (08/08/2023 10:53 AM EST): -Patient with reasonable glycemic control given her age and comorbidities -I have more relaxed targets for this patient with primary goal being avoidance of hypoglycemia and secondary goal being reasonable glycemic control -Patient without complications at this time -Recommend a slight reduction of basal insulin overnight -Recommend a slight reduction of bolus insulin at breakfast, recommend she give her insulin earlier -Recommend a slight increase in bolus insulin at suppertime -Continue Medtronic 770 G -Continue Dexcom G6 CGM -Continue losartan 100 mg daily; blood pressure today 110/62, May consider dose reduction of losartan at next visit if blood pressure continues to be borderline low DM Health Maintenance: Ophtho: last done 07/20/2023, no known retinopathy, has macular degeneration Monofilament / Foot exam: Completed 07/06/2022 no reported new sores, repeat exam at next visit Lipids/Statin: Continue statin with last FLP showing LDL 80 done 07/02/2023 ALBINA:Cr 24 done 10/05/2022 TSH: 0.31 and FT4 1.38 done 07/02/2023 while taking a stable dose of levothyroxine 88 mcg daily Aspirin: taking Assessment & Plan (04/26/2023 10:43 AM EDT): -Patient with reasonable glycemic control for age -Recommend avoiding hypoglycemia due to age -It appears she is bolusing for meals too late and to aggressively -Counseled on the importance of bolusing 15 to 20 minutes prior to eating and will reduce the bolus insulin amount -Basal rate reduced during the day -Carbohydrate ratio changed for afternoon and evening -See media tab for new pump settings -Patient referred benefit from hybrid closed-loop pump in the future, recommend considering this when she is due for upgrade -Continue losartan 100 mg daily; blood pressure today 102/62 DM Health Maintenance: Ophtho: last done 12/2021, no known retinopathy, has macular degeneration; has follow-up 06/2023 Monofilament / Foot exam: Completed 07/06/2022 Lipids/Statin: taking a statin with last FLP showing LDL 84, total cholesterol 180, triglycerides 61, HDL 88 done 03/06/2022 ALBINA:Cr 24 done 10/05/2022 TSH: 0.78 done 12/20/2022 while taking a stable dose of levothyroxine 88 mcg daily Aspirin: taking Assessment & Plan (01/11/2023 10:39 AM EDT): -Diabetes is currently well controlled overall -Recommend reducing carbohydrate ratio at breakfast time to 1:17 -Recommend giving bolus insulin sooner to prevent postprandial hyperglycemia -Continue [employer] G6 -Continue [employer]tronic 770 G -Continue losartan 100 mg daily; blood pressure today 138/80 DM Health Maintenance: Ophtho: last done 12/2021, no known retinopathy, has macular degeneration; has follow-up 06/2023 Monofilament / Foot exam: Completed 07/06/2022 Lipids/Statin: Continue statin with last FLP showing LDL 84, total cholesterol 180, triglycerides 61, HDL 88 done 03/06/2022 ALBINA:Cr 24 done 10/05/2022 TSH: 0.78 done 12/20/2022 while taking a stable dose of levothyroxine 88 mcg daily Aspirin: taking Assessment & Plan (10/05/2022 1:33 PM EDT): -Diabetes is near goal although patient continues to have hyperglycemia and hypoglycemia -Given her age I have a more relaxed glycemic target for her with a goal of preventing hypoglycemia and maintaining reasonable glycemic control -Hemoglobin A1c 6.7% today -Patient continues to snack without entering carbs into her pump due to fear of hypoglycemia particularly in the afternoon leading to some variable blood glucoses and for that reason I do not feel like making any changes to her settings in the afternoon and evening would be beneficial although I do recommend that she consistently use her carb ratio when eating carbohydrate -Recommend she give her insulin for breakfast 5 minutes earlier to prevent the mild postprandial spike -Recommend a slight increase in her basal rate in the water tester time to bring her morning glucose down; increased her basal rate from 6-8 AM up to 0.35 units/h -Continue Dexcom G6 CGM -Continue losartan 100 mg daily; blood pressure today 110/68 DM Health Maintenance: Ophtho: last done 12/2021, no known retinopathy, has macular degeneration; continue to follow with ophthalmology Monofilament / Foot exam: completed 07/06/2022; recommend nightly foot exams Lipids/Statin: continue pravastatin 40 mg daily, last FLP showing LDL 84, total cholesterol 180, triglycerides 61, HDL 88 done 03/06/2022 ALBINA:Cr 25.9 done 08/09/2021; repeat today TSH: 2.03 done 08/09/2021 while taking a stable dose of levothyroxine 88 mcg daily Aspirin: taking Assessment & Plan (07/06/2022 2:10 PM EST): -Patient with uncontrolled diabetes due to hyperglycemia and hypoglycemia -Suspect majority of her hyperglycemia is due to overcorrection of hypoglycemia which is occurring at night and after meals -Recommend reduction of all basal rates on her pump as well as reduction of intensity of her carbohydrate ratio -These changes were made and noted on her pump download which is scanned in the media tab; my goal is to reduce her frequency of hypoglycemia which should also reduce hyperglycemia as she frequently overcorrects lows -Continue Dexcom G6 CGM DM Health Maintenance: Ophtho: last done 12/2021, has follow-up next week, no known retinopathy Monofilament / Foot exam: Done today normal aside from onychomycosis Lipids/Statin: Continue statin with last FLP showing LDL 84, total cholesterol 180, triglycerides 61, HDL 88 done 03/06/2022 ALBINA:Cr 25.9 done 08/09/2021 TSH: 2.03 done 08/09/2021 while taking a stable dose of levothyroxine 88 mcg daily Aspirin: taking Postoperative hypothyroidism Assessment & Plan (12/24/2024 1:06 PM EDT): -Check TFTs with labs today -Clinically euthyroid on levothyroxine 75mcg daily Assessment & Plan (10/01/2024 2:02 PM EDT): Clinically euthyroid on levothyroxine 75 mcg daily. Thyroid levels were in normal range when checked in June 2024. No repeat labs done today, continue current dose of levothyroxine. Assessment & Plan (07/02/2024 2:28 PM EST): -Check TSH and free T4 today -For now continue levothyroxine 75 mcg daily, will adjust dose based on labs Assessment & Plan (03/05/2024 12:09 PM EDT): -Clinically euthyroid -Continue levothyroxine 75 mcg daily Assessment & Plan (11/22/2023 11:44 AM EDT): -Adjust dose of levothyroxine based on labs today Assessment & Plan (08/08/2023 10:51 AM EST): -TSH was slightly low on last check, will repeat TSH and free T4 today -If TSH remains low we will plan to reduce dose of levothyroxine to 75 mcg daily Assessment & Plan (04/26/2023 10:41 AM EDT): -Patient appears clinically euthyroid -Given her borderline low TSH for age at last visit recommend repeating TSH and free T4 in the coming months as she may need a reduction of her levothyroxine dose -Labs printed to be done at her primary care doctor's office in the coming months Assessment & Plan (01/11/2023 10:39 AM EDT): -TSH 0.78 done 12/20/2022 -Continue levothyroxine 88 mcg daily for now, we may need to reduce the dose to 75 mcg daily in the future Assessment & Plan (10/05/2022 1:37 PM EDT): -Patient appears clinically euthyroid today -Recommend continuing levothyroxine 88 mcg daily -Patient declines getting thyroid function test today and prefers to do it at her next visit, recommend checking TSH and free T4 at next visit or sooner with clinical change -Recommend she wait 20 to 30 minutes before drinking hot beverages after taking levothyroxine Assessment & Plan (07/06/2022 2:06 PM EST): -Patient appears clinically euthyroid today -Recommend continuing levothyroxine 88 mcg daily -We will get TSH and free T4, titrate levothyroxine to achieve normal TSH Presence of insulin pump Hypercholesterolemia Assessment & Plan (12/24/2024 1:08 PM EDT): -Check nonfasting lipid panel with labs today -For now continue pravastatin 40 mg daily Assessment & Plan (07/02/2024 2:28 PM EST): -Check nonfasting lipid panel with labs today -For now continue pravastatin 40 mg daily Assessment & Plan (03/05/2024 12:10 PM EDT): -Lipids are stable, continue pravastatin 40 mg daily; LDL is slightly above goal but she has a very robust HDL and otherwise low risk for cardiovascular event other than age Assessment & Plan (11/22/2023 11:46 AM EDT): -Lipids are stable, continue pravastatin 40 mg daily; LDL is slightly above goal but she has a very robust HDL and otherwise low risk for cardiovascular event other than age Assessment & Plan (08/08/2023 10:53 AM EST): -Patient with reasonable control of lipids -Continue pravastatin 40 mg daily Assessment & Plan (04/26/2023 10:43 AM EDT): -Check fasting lipid panel at her PCP office in the coming months -For now continue pravastatin 40 mg daily Assessment & Plan (01/11/2023 10:39 AM EDT): -Recommend repeating fasted lipid panel at next visit -Continue pravastatin 40 mg daily for now Assessment & Plan (07/06/2022 2:07 PM EST): -Labs done 03/06/2022 showed total cholesterol 180, triglycerides 61, LDL 84 and HDL 88 -Recommend patient continue pravastatin 40 mg daily -We will get repeat lipids in February 2023 Resolved Problems Problem Noted Date Diagnosed Date Resolved Date Wound infection 07/06/2022 01/11/2023 Assessment & Plan (07/06/2022 2:08 PM EST): -Patient with small laceration on right lower extremity with minimal surrounding erythema -Recommend applying Bactroban 2% twice daily to this area until it resolves -If redness worsens or she develops purulent drainage or pain from this area recommend she see her primary care physician for further follow-up Microalbuminuria 01/11/2023 Assessment & Plan (01/11/2023 10:40 AM EDT): -Resolved with treatment, continue losartan 100 mg daily Hypoglycemia due to type 1 diabetes mellitus 10/05/2022 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 10/05/2022 Encounters Date Type Department Care Team Description 12/26/2024 Results Follow-Up [facility] [address] [place] [address] Kevin Cardona MD 12/24/2024 12:45 PM EDT Office Visit [facility] [address] [place] [address] Kevin Cardona MD Type 1 diabetes mellitus with hyperglycemia (Primary Dx); Postoperative hypothyroidism; Hypercholesterolemia 12/24/2024 Travel from Last 3 Months Immunizations Immunization Administration Dates Next Due COVID-19 (MODERNA) 1st,2nd,3 rd Dose Monovalent 09/28/2020,08/31/2020 Fluzone High-Dose 65+YRS 04/11/2018,04/26/2017 Fluzone High-Dose 65+yrs 04/12/2023,04/30/2022,1 Pneumococcal Conjugate 20-Valent (PCV20) 022 Pneumococcal Polysaccharide (PPSV23) 07/10/2021 Shingrix 09/21/2021,06/08/2021 Tdap 11/20/2018 Family History Medical History Relation Name Comments Heart disease Father Heart disease Mother Relation Name Status Comments Father Mother Social History Tobacco Use Types Packs/Day Years Used Date Smoking Tobacco: Never Passive Smoke Exposure: Never Smokeless Tobacco: Never Tobacco Cessation:Counseling Given: Not Answered Alcohol Use Standard Drinks/Week Comments Never 0 [...] on file Sexual Orientation Not on file Last Filed Vital Signs Vital Sign Reading Time Taken Comments Blood Pressure 118/64 12/24/2024 12:32 PM EDT Pulse 70 12/24/2024 12:32 PM EDT Temperature 36.4 C (97.5 F) 11/08/2020 9:58 AM EDT Respiratory Rate - - Oxygen Saturation 100% 12/24/2024 12: 32 PM EDT Inhaled Oxygen Concentration - - Weight 51.2 kg (112 lb 12.8 oz) 025 12:32 PM EDT Height 157.5 cm (5' 2 ) 12/24/2024 12:3 2 PM EDT Body Mass Index 20.63 12/24/2024 12:32 PM EDT Plan of Treatment Upcoming Encounters Date Type Department Care Team (Late st Contact Info) Description 05/20/2025 11:30 AM EDT Office Visit [facility] [address] [place] [address] Kevin Cardona MD [address] [facility] [address] [place], [place] [id number] Health Maintenance Due Date Last Done Comments DXA SCAN 1940 RSV Vaccine - Adults (1 - 1- dose 75+ series) 2017 ANNUAL WELLNESS VISIT 05/03/2020 COVID-19 Vaccine (2023-2 5 season) 2024 04/25/2022, 02/12/2022, 05/03/2021, Additional history exists DIABETIC FOOT EXAM 03/04/2025 03/04/2024 INFLUENZA VACCINE 04/21/2025 04/14/2024, , 04/30/2022, Additional history exists DIABETIC EYE EXAM 06/11/2025 06/11/2024 (Pa tient-Reported (Performed Externally)), 07/20/2023 (Patient-Reported (Performed Externally)), 01/04/2022 (Patient-Reported (Performed Externally)) HEMOGLOBIN A1C 06/25/2025 12/24/2024, 09/19, 07/02/2024, Additional history exists LIPID PANEL 12/24/2025 12/24/2024, 06/21, 03/06/2022, Additional history exists URINE MICROALBUMIN-CREATININ E RATIO (uACR) 12/25/2025 12/25/2024, 10/05/2022, 08/09/2021, Additional history exists TDAP/TD VACCINES (2 - Td or Tdap) 11/20/2028 019 ZOSTER VACCINE Completed 09/21/2021, 06/08/2021 Pneumococcal Vaccine 50+ Completed 07/09/2022, 06/22 Procedures Procedure Name Priority Date/Time Associated Diagnosis Comments CBC AND DIFFERENTIAL Routine 12/24/2024 1:05 PM EDT Type 1 diabetes mellitus with hyperglycemia CBC WITH AUTO DIFFERENTIAL Routine 12/24/2024 1:05 PM EDT Type 1 diabetes mellitus with hyperglycemia LIPID PANEL Routine 12/24/2024 1:05 PM EDT Hypercholesterolemia MICROALBUMIN / CREATININE URINE RATIO Routine 12/24/2024 1:05 PM EDT Type 1 diabetes mellitus with hyperglycemia T4, FREE Routine 12/24/2024 1:05 PM EDT Postoperative hypothyroidism TSH Routine 12/24/2024 1:05 PM EDT Postoperative hypothyroidism COMPREHENSIVE METABOLIC PANEL Routine 12/24/2024 1:05 PM EDT Type 1 diabetes mellitus with hyperglycemia POCT GLYCOSYLATED HEMOGLOBIN (HGB A1C) Routine 12/24/2024 12:45 PM EDT Type 1 diabetes mellitus with hyperglycemia POCT GLUCOSE, BLD (NON STRIP) Routine 12/24/2024 12:44 PM EDT Type 1 diabetes mellitus with hyperglycemia MICROALBUMIN / CREATININE URINE RATIO Routine 10/05/2022 1:25 PM EDT Type 1 diabetes mellitus with hyperglycemia from Last 3 Months or Most Recently Relevant to Health Maintenance Results * (ABNORMAL) CBC Auto Differential (12/24/2024 1:05 PM EDT) [facility] WBC 8.24 3.40 - 10.80 10*3/mm3 12/24/2024 11:15 PM EDT [facility] RBC 3.48(L) 3.77 - 5.28 10*6/mm3 12/24/2024 11:15 PM EDT [facility] Hemoglobin 10.7(L) 12.0 - 15.9 g/dL 12/24/2024 11:15 PM EDT [facility] Hematocrit 32.8(L) 34.0 - 46.6 % 12/24[facility]2024 [facility] MCV 94.3 79.0 - 97.0 fL 12/24/2024 11:15 PM [facility] MCH 30.7 26.6 - 33.0 pg 12/24/2024 11:15 PM [facility] MCHC 32.6 31.5 - 35.7 g/dL 12/24/2024 11:15 PM [facility] RDW 12.1(L) 12.3 - 15.4 % 12/24/2024 11:15 PM [facility] RDW-SD 41.8 37.0 - 54.0 fl 12/24/2024 11:15 PM [facility] MPV 10.6 6.0 - 12.0 fL 12/24/2024 11:15 PM [facility] Platelets 278 140 - 450 10*3/mm3 12/24/2024 11:15 PM [facility] Neutrophil % 63.0 42.7 - 76.0 % 12/24/2024 11:15 PM [facility] Lymphocyte % 23.2 19.6 - 45.3 % 12/24/2024 11:15 PM [facility] Monocyte % 9.5 5.0 - 12.0 % 12/24/2024 11:15 PM [facility] Eosinophil % 2.9 0.3 - 6.2 % 12/24/2024 11:15 PM [facility] Basophil % 1.0 0.0 - 1.5 % 12/24/2024 11:15 PM [facility] Immature Grans % 0.4 0.0 - 0.5 % 12/24/2024 11:15 PM [facility] Neutrophils, Absolute 5.20 1.70 - 7.00 10*3/mm3 12/24/2024 11:15 PM [facility] Lymphocytes, Absolute 1.91 0.70 - 3.10 10*3/mm3 12/24/2024 11:15 PM [facility] Monocytes, Absolute 0.78 0.10 - 0.90 10*3/mm3 12/24/2024 11:15 PM EDT [facility] Eosinophils, Absolute 0.24 0.00 - 0.40 10*3/mm3 12/24/2024 11:15 PM EDT [facility] Basophils, Absolute 0.08 0.00 - 0.20 10*3/mm3 12/24/2024 11:15 PM EDT [facility] Immature Grans, Absolute 0.03 0.00 - 0.05 10*3/mm3 12/24/2024 11:15 PM EDT [facility] nRBC 0.0 0.0 - 0.2 /100 WBC 12/24/2024 11:15 PM EDT [facility] Blood Venipuncture / Unknown 12/24/2024 1:05 PM EDT 12/24/2024 1:06 PM EDT Kevin Cardona MD LAB BLOOD ORDERABLES Final Result [facility]
[address] [place] [address], * Microalbumin / Creatinine Urine Ratio - Urine, Clean Catch (12/24/2024 1:05 PM EDT) Only the most recent of2 resultswithin the time period is included. Microalbumin/C reatinine Ratio 12/25/2024 12:40 AM EDT [facility] Comment:Unable to calculate Creatinine, Urine 36.3 mg/dL 12/25/2024 12:40 AM EDT [facility] Microalbumin, Urine <1.2 mg/dL 12/25/2024 12:40 AM EDT [facility] Urine Urine specimen obtained by clean catch procedure / Unknown Collection / Unknown 12/24/2024 1:05 PM EDT 12/24/2024 1:06 PM EDT Kevin Cardona MD URINE ORDERABLES Final Resu lt Performing Organization Address [facility] de Phone Number [facility]
[address] [place] [address], * TSH (12/24/2024 1:05 PM EDT) Pathologist [facility] TSH 1.230 0.270 - 4.200 uIU/mL 12/25/2024 12:36 AM EDT [facility] Blood Structure of left upper limb / Unknown Venipuncture / Unknown 12/24/2024 1:05 PM EDT 12/24/2024 1:06 PM EDT Kevin Cardona MD LAB BLOOD ORDERABLES Final Result Performing Organization Address [facility] de Phone Number [facility]
[address] [place] [address], * T4, Free (12/24/2024 1:05 PM EDT) Pathologist [facility] Free T4 1.23 0.92 - 1.68 ng/dL 12/25/2024 12:36 AM EDT [facility] Blood Structure of left upper limb / Unknown Venipuncture / Unknown 12/24/2024 1:05 PM EDT 12/24/2024 1:06 PM EDT Kevin Cardona MD LAB BLOOD ORDERABLES Final Result Performing Organization Address [facility] de Phone Number [facility]
[address] [place] [address], * (ABNORMAL) Lipid Panel (12/24/2024 1:05 PM EDT) Pathologist [facility] Total Cholesterol 170 0 - 200 mg/dL 12/25/2024 12:28 AM EDT [facility] Triglycerides 89 0 - 150 mg/dL 12/25/2024 12:28 AM EDT [facility] HDL Cholesterol 79(H) 40 - 60 mg/dL 12/25/2024 12:28 AM EDT [facility] LDL Cholesterol 75 0 - 100 mg/dL 12/25/2024 12:28 AM EDT [facility] VLDL Cholesterol 16 5 - 40 mg/dL 12/25/2024 12:28 AM EDT [facility] LDL/HDL Ratio 0.93 12/25/2024 12:28 AM EDT [facility] Blood Structure of left upper limb / Unknown Venipuncture / Unknown 12/24/2024 1:05 PM EDT 12/24/2024 1:06 PM EDT Narrative [facility] - 12/25/2024 12:28 AM EDT [...] Cardona MD LAB BLOOD ORDERABLES Final Result [facility]
[address] [place] [address], * (ABNORMAL) Comprehensive Metabolic Panel (12/24/2024 1:05 PM EDT) Glucose 223(H) 65 - 99 mg/dL 12/25[facility]2024 [facility] BUN 38.0(H) 8.0 - 23.0 mg/dL 12/25/2024 12:56 AM [facility] Creatinine 1.51(H) 0.57 - 1.00 mg/dL 12/25/2024 12:56 AM [facility] Sodium 135(L) 136 - 145 mmol/L 12/25/2024 12:56 AM [facility] Potassium 5.1 3.5 - 5.2 mmol/L 12/25/2024 12:56 AM [facility] Chloride 101 98 - 107 mmol/L 12/25/2024 12:56 AM [facility] CO2 21.2(L) 22.0 - 29.0 mmol/L 12/25/2024 12:56 AM [facility] Calcium 9.2 8.6 - 10.5 mg/dL 12/25/2024 12:56 AM [facility] Total Protein 7.1 6.0 - 8.5 g/dL 12/25/2024 12:56 AM [facility] Albumin 4.1 3.5 - 5.2 g/dL 12/25/2024 12:56 AM [facility] ALT (SGPT) 5 1 - 33 U/L 12/25/2024 12:56 AM [facility] AST (SGOT) 16 1 - 32 U/L 12/25/2024 12:56 AM [facility] Alkaline Phosphatase 101 39 - 117 U/L 12/25/2024 12:56 AM [facility] Total Bilirubin 0.4 0.0 - 1.2 mg/dL 12/25/2024 12:56 AM [facility] Globulin 3.0 gm/dL 12/25/2024 12:56 AM [facility] A/G Ratio 1.4 g/dL 12/25/2024 12:56 AM [facility] BUN/Creatinine Ratio 25.2(H) 7.0 - 25.0 12/25/2024 12:56 AM EDT [facility] Anion Gap 12.8 5.0 - 15.0 mmol/L 12/25/2024 12:56 AM EDT [facility] eGFR 34.4(L) >60.0 mL/min/1.7 3 12/25/2024 12:56 AM EDT [facility] Blood Structure of left upper limb / Unknown Venipuncture / Unknown 12/24/2024 1:05 PM EDT 12/24/2024 1:06 PM EDT Narrative [facility] - 12/25/2024 12:56 AM EDT GFR [...] Cardona MD LAB BLOOD ORDERABLES Final Result [facility]
[address] [place] [address], * (ABNORMAL) POC Glycosylated Hemoglobin (Hb A1C) (12/24/2024 12:45 PM EDT) Hemoglobin A1C 7.0(A) 4.5 - 5.7 % [facility] Lot Number [id number] [facility] Expiration Date 09/16/26 [facility] Blood 12/24/2024 12:4 5 PM EDT us Kevin Cardona MD POINT OF CARE TEST ORDERABL ES Final Result [facility]
[address] [place] [address], [place] [phone] * (ABNORMAL) POC Glucose, Blood (12/24/2024 12:44 PM EDT) Glucose 251(A) 70 - 130 mg/dL Lot Number [id number] Expiration Date 07/04/25 Blood 12/24/2024 12:4 4 PM EDT Kevin Cardona MD POINT OF CARE TEST ORDERABL ES Final Result from Last 3 Months or Most Recently Relevant to Health Maintenance Insurance [employer] MEDICARE ADVANTAGE PPO Care Teams Chemical Dependency Counselor Relationship Specialty Start Date End Date Blaine Meyer DO [address] [place] [address] PCP - General Internal Medicine 09/30/24
[2025-02-15 09:19] LABS: Microscopic, Urine URINE MICROSCOPIC (MICROSCOPIC)
[2025-02-15 10:11] LABS: Bilirubin,Urine Negative (Negative); Color,Urine YELLOW (Yellow); Glucose,Urine (UA) Negative (Negative); Ketones,Urine Negative (Negative); Leukocyte Esterase,Urine TRACE (Negative); PH,Urine 6.0 (5.0-8.5); Protein,Urine Negative (Negative); Specific Gravity, Urine 1.010 (1.005-1.030); Urobilinogen,Urine 0.2 EU/dl (0.2)
[2025-02-15 10:23] LABS: Bacteria,Urine Trace /lpf; Squamous Epithelial Cell,Urine Occasional #/hpf (0-5); WBC,Urine Occasional #/hpf (0-3)
[2025-02-15 10:24] LABS: Hematocrit 34.3 % (37.0-47.0); Hemoglobin 10.7 g/dL (12.2-16.2); Immature Granulocytes % 0.3 %; Mean Corpuscular HGB Conc 31.2 g/dL (31.8-35.4); Mean Corpuscular Hemoglobin 29.2 pg (27.0-31.2); Mean Corpuscular Volume 93.5 fl (81-99); Nucleated Red Blood Cells % 0 %; Platelet Count 327 K/mm3 (142-424); Red Blood Count 3.67 M/mm3 (4.20-5.40); Red Cell Distribution Width-SD 46.0 fL; White Blood Count 6.9 K/mm3 (4.8-10.8)
[2025-02-15 10:38] LABS: Albumin Level 4.4 g/dl (3.5-5.0); Anion Gap 12.9 mEq/L (5-15); Blood Urea Nitrogen 43 mg/dl (7-17); Calcium 9.8 mg/dl (8.4-10.2); Carbon Dioxide 28 mmol/L (22.0-30.0); Chloride 100 mmol/L (98-107); Creatinine,Serum 1.30 mg/dl (0.52-1.04); Estimated Glomerular Filt Rate 39 ml/min (>60); GFR (African American) 47 ML/MIN (>60); Glucose 184 mg/dl (74-100); Phosphorous 3.9 mg/dl (2.5-4.5); Potassium 4.9 mmoL/L (3.5-5.1); Sodium 136 mmol/L (136-145)
[2025-02-15 10:56] LABS: 25-OH Vitamin D, Total 52.1 ng/mL (30-100)
== END 2025-02-15 23:59 | disposition home or self-care (01) ==
LOC: LAB 09:14
PROVIDERS: PCP Internal Medicine; Visit Provider Nurse Practitioner
DX: N18.30 Chronic kidney disease, stage 3 unspecified (principal); E55.9 Vitamin D deficiency, unspecified
CPT/HCPCS: 36415; 80069; 81001; 82306; 82570; 83970; 84156; 85025

== ENCOUNTER 2025-04-07 08:43 | Outpatient (CLI) | payer MEDICARE, SELFPAY ==
--- OUTSIDE RECORDS SUMMARY | 2025-02-26 09:00 | XMS_ITS | Encounter Summary ---
Author Organization [facility] Address [address] [place] [address] Care Team Providers Care Tar Kettle Runner Name Role Phone Alo Infante MD Primary Care Provider + [phone] Reason for Visit * Reason Comments Consult Pt is a 85 year old female that presents to the clinic on this date as a new patient. * Consultation (Routine) - Closed Specialty Diagnoses / Procedures Referred By Pérez mandel Referred To Contact Nephrology Diagnoses Stage 3 chronic kidney disease, unspecified whether stage 3a or 3b CKD (CMS/HCC) Roshni Sánchez APRN [address] [address] Phone: tel: fax: Referral ID Status Reason Start Date Expiration Date V isits Requested Visits Authorized [id number] Closed Specialty Services Required 10/12/2024 04/13/2026 1 1 Encounter Details Date Type Department Care Team (Late st Contact Info) Description 02/26/2025 9:00 AM EDT Office Visit [facility] [address] [facility] [address], [place] [id number] Roshni Sánchez APRN [address] [address] Stage 3b chronic kidney disease (CMS/HCC) (Primary Dx); Essential hypertension; Proteinuria, unspecified type; Chronic kidney disease-mineral and bone disorder; Microalbuminuria; Diabetes mellitus due to underlying condition with diabetic chronic kidney disease, unspecified CKD stage, unspecified whether intermodal customer service insulin use (CMS/HCC); Iron deficiency anemia, unspecified iron deficiency anemia type Social History Tobacco Use Types Packs/Day Years Used Date Smoking Tobacco: Never Passive Smoke Exposure: Never Smokeless Tobacco: Never Alcohol Use Standard Drinks/Week Comments Never 0 (1 standard drink = 0.6 oz pur e alcohol) AUDIT-C Answer Date Recorded Q1: How often do you have a drink containing alcohol? Never 02/24/2025 Q2: How many drinks containi ng alcohol do you have on a typical day when you are drinking? Patient does not drink Q3: How often do you have si x or more drinks on one occasion? Never 02/24/2025 Comments No Sex and Gender Information Value Date Recorded Sex Assigned at Not on file Legal Sex Female 8:11 PM EDT Gender Identity Not on file Sexual Orientation Not on file documented as of this encounter Last Filed Vital Signs Vital Sign Reading Time Taken Comments Blood Pressure 134/70 02/26/2025 9:20 AM EDT Pulse 70 02/26/2025 9:20 AM EDT Temperature - - Respiratory Rate 16 02/26/2025 9:20 AM EDT Oxygen Saturation 99% 02/26/2025 9:20 AM EDT Inhaled Oxygen Concentration - - Weight 51.7 kg (114 lb) 02/26/2025 9:20 AM EDT Height 160 cm (5' 3 ) 02/26/2025 9:20 AM EDT Body Mass Index 20.19 02/26/2025 9:20 AM EDT documented in this encounter Miscellaneous Notes * Progress Notes - Roshni Sánchez APRN - 02/26/2025 9:00 AM EDT Nephrology Outpatient Consult Note Reason for referral: CKD evaluation Referring Provider: Alo Infante MD HPI: Virginia Lima is a 85 y.o. female with PMH of DM1, CKD, HTN, GERD and Hypothyroidism who presents as a new consult at the request of Alo Infante MD Patient notes 50+yr history of Diabetes type 1. Has an insuling pump and CGM. A1c 6.4. BP at goal at home. Follows with team supervisor yearly, no retinopathy. Denies any neuropathy. Previously took NSAIDs intermittently for minor pain relieft. Stopped taking ~a yr ago. Creatinine 1.2-1.5 since 07/2023. No history of known AKIs. Has no history of edema. Denies hematuria, dysuria, abd pain, SOA, CP. I have personally reviewed records from referring provider and other consultants. REVIEW OF SYSTEMS A complete 14-point review of systems was obtained and is negative except as reported in the HPI Past Medical History[1] Surgical History[2] Family History[3] Social History Tobacco Use Smoking status: Never Passive exposure: Never Smokeless tobacco: Never Substance Use Topics Alcohol use: Never Medications Current Medications[4] Allergies[5] PHYSICAL EXAMINATION Visit Vitals BP 134/70 (BP Location: Left arm, Patient Position: Sitting, BP Cuff Size: Adult long) Pulse 70 Resp 16 Ht 1.6 m (5' 3 ) Wt 51.7 kg (114 lb) LMP (LMP Unknown) SpO2 99% BMI 20.19 kg/m?? OB Status Postmenopausal Smoking Status Never BSA 1.52 m?? GA: well developed, well nourished, conversant, NAD EYES: Anicteric sclera, no injection, no discharge HENT: Head is normocephalic and atraumatic. Mucous membranes are moist. NECK: Supple. No visible masses or thyromegaly RESP: Normal resp effort. Lungs clear to auscultation bilaterally. No wheezing, rhonchi or crackles CV: Heart RRR, no murmurs or rubs GI: Abdomen soft, non tender, and non distended. Positive bowel sounds. : No suprapubic tenderness, no CVA tenderness MSK/Ext: No edema. No joint swelling. No cyanosis or clubbing NEURO: Grossly intact. No focal deficits. Cooperative PSYCH: Appropriate mood and affect, AAO SKIN: Normal temperature. No rash or ulcers. No jaundice LAB AND IMAGING RESULTS Lab Results Component Value Date CREATININE 1.51 (H) 12/24/2024 CREATININE 1.45 (H) 07/02/2024 EGFR 34.4 (L) 12/24/2024 EGFR 36.1 (L) 07/02/2024 BUN 38 (H) 12/24/2024 BUN 41 (H) 07/02/2024 NA 135 (L) 12/24/2024 NA 142 07/02/2024 K 5.1 12/24/2024 K 4.5 07/02/2024 CL 101 12/24/2024 CL 105 07/02/2024 Lab Results Component Value Date ALBUMIN 4.1 12/24/2024 CALCIUM 9.2 12/24/2024 Lab Results Component Value Date WBC 8.24 12/24/2024 HGB 10.7 (L) 12/24/2024 HCT 32.8 (L) 12/24/2024 MCV 94.3 12/24/2024 PLT 278 12/24/2024 No results found for: CREATU , URINEPRO , UTPCR , ALBCREA No lab exists for component: ALB I have independently reviewed and interpreted the test results and discussed with patient. Labs scanned in to media tab of [employer] from an outside facility. Labs completed on 02/15/25 ASSESSMENT/PLAN CKD3b- baseline cr 1.2-1.5, most recent 1.3 egfr 39 Likely due to DM DM 1 (50+yrs), last A1c at goal 6.4 Microalbuminuria Proteinuria- U pr/cr 1 HTN- at goal Anemia - Hgb 10.7 CKD MBD- Ca/PO4/pth, vit D stable Plan Will monitor iron studies prior to next appointment. Reviewed CKD with it's relation to Dm and HTN. Patient at risk of disease progression, but likely less likely to be rapidly progressive. Discussed potential use of SGL2s with patient, however will hold on therapy for now. If protein increases or if egfr declines would recommend to start SGL2. Encouraged continued glucose and BP control. Roshni Sánchez, ORGANIZATIONAL CONSULTANT [1] Past Medical History: Diagnosis Date GERD (gastroesophageal reflux disease) HLD (hyperlipidemia) HTN (hypertension) Hypothyroidism [2] Past Surgical History: Procedure Laterality Date DILATION AND CURETTAGE OF UTERUS HYSTEROSCOPY THYROIDECTOMY WRIST SURGERY [3] No family history on file. [4] Current Outpatient Medications Medication Sig Dispense Refill amLODIPine (Norvasc) 5 MG tablet Take 1 tablet by mouth daily. calcium carbonate (Tums) 500 MG chewable tablet Chew 1 tablet daily. furosemide (Lasix) 20 MG tablet Take 1 tablet by mouth daily. insulin aspart (NovoLOG) 100 UNIT/ML injection vial Inject 0.8 Units under the skin 3 times a day before meals. insulin glargine (Lantus) 100 UNIT/ML injection vial Inject 1 Units under the skin nightly. levothyroxine (Synthroid, Levoxyl) 75 MCG tablet Take 1 tablet by mouth daily before breakfast. losartan (Cozaar) 100 MG tablet Take 1 tablet by mouth daily. pravastatin (Pravachol) 40 MG tablet Take 1 tablet by mouth nightly. spironolactone (Aldactone) 25 MG tablet Take 1 tablet by mouth daily. hydroCHLOROthiazide (HYDRODiuril) 25 MG tablet Take 1 tablet by mouth daily. (Patient not taking: Reported on 02/26/2025) No current facility-administered medications for this visit. [5] No Known Allergies documented in this encounter Plan of Treatment Upcoming Encounters Date Type Department Care Team (Late st Contact Info) Description 09/03/2025 8:40 AM EST Office Visit [facility] [address] [facility] [address] [place] [address] Roshni Sánchez APRN [address] [address] Scheduled Orders Name Type Priority Associated Diagnoses Orde r Schedule Iron, Plasma Lab Routine Stage 3b chronic kidney disease ([facility]/HCC) Iron deficiency anemia, unspecified iron deficiency anemia type Expected: 02/26/2025 (Approximate), Expires: 08/29/2026 Iron & Total Iron Binding Capacity, Plasma (Includes Transferrin) Lab Routine Stage 3b chronic kidney disease ([facility]/HCC) Iron deficiency anemia, unspecified iron deficiency anemia type Expected: 02/26/2025 (Approximate), Expires: 08/29/2026 Ferritin, Serum Lab Routine Stage 3b chronic kidney disease (CMS/HCC) Iron deficiency anemia, unspecified iron deficiency anemia type Expected: 02/26/2025 (Approximate), Expires: 08/29/2026 Renal Function Panel, Plasma Lab Routine Stage 3b chronic kidney disease (CMS/HCC) Expected: 02/26/2025 (Approximate), Expires: 08/29/2026 CBC W/O Differential Lab Routine Stage 3b chronic kidney disease (CMS/HCC) Expected: 02/26/2025 (Approximate), Expires: 08/29/2026 Urinalysis with reflex microscopic (Culture NOT Included) Lab Routine Stage 3b chronic kidney disease ([facility]) Expected: 02/26/2025 (Approximate), Expires: 08/29/2026 Creatinine, Random, Urine Lab Routine Stage 3b chronic kidney disease ([facility]) Expected: 02/26/2025 (Approximate), Expires: 08/29/2026 Albumin-creatinine ratio, urine, random Lab Routine Stage 3b chronic kidney disease ([facility]) Expected: 02/26/2025 (Approximate), Expires: 08/29/2026 Protein, Random, Urine with Creatinine Lab Routine Stage 3b chronic kidney disease ([facility]) Expected: 02/26/2025 (Approximate), Expires: 08/29/2026 documented as of this encounter Visit Diagnoses Diagnosis Stage 3b chronic kidney disease ([facility])- Primary Essential hypertension Unspecified essential hypertension Proteinuria, unspecified type Chronic kidney disease-mineral and bone disorder Microalbuminuria Proteinuria Diabetes mellitus due to underlying condition with diabetic chronic kidney disease, unspecified CKD stage, unspecified whether nursing home insulin use ([facility]) Iron deficiency anemia, unspecified iron deficiency anemia type documented in this encounter Additional Health Concerns Assessment Noted Time A Body Mass Index follow-up plan has been documented for the patient 02/26/2025 9:57 AM EDT documented as of this encounter Care Teams Tar Kettle Runner Relationship Specialty Start Date End Date Alo Infante MD [address] [place] [address] PCP - General 12/02/20 documented as of this encounter
--- NOTE | 2025-04-07 09:00 | XR_ITS ---
FINAL REPORT CLINICAL HISTORY: Screening guidlines COMPARISON: None FINDINGS: Using L1-4, the bone mineral density of the spine is 0.891 g/cm2, corresponding to T-score of -1.4. Using the left hip, the bone mineral density of the femoral neck is 0.459 g/cm2, corresponding to a T-score of -3.5. Using the right hip, the bone mineral density of the femoral neck is 0.515 g/cm2, corresponding to a T-score of -3.0. NOTE: T-score: Standard deviation compared with peak bone mass of young adult mean. *Following the recommendations of the International Society of Bone densitometry, classification of hip BMD is based on the lower of two T-scores; total hip or femoral neck. IMPRESSION: Diminished bone mineral density of the lumbar spine corresponding to osteopenia. Diminished bone mineral density of the bilateral hips, corresponding to osteoporosis. Reviewed, Interpreted and Dictated by Sam Maria MD Transcribed by Tiffany Dueñas Authenticated and [facility]
--- OUTSIDE RECORDS SUMMARY | 2025-04-07 09:08 | XMS_ITS | Clinical Summary ---
Author Organization [facility] Address [address] [place] [address] Care Team Providers Care Video Tape Editor Name Role Phone Alo Infante MD Primary Care Provider + [phone] Allergies No known active allergies Medications amLODIPine (Norvasc) 5 MG tablet Take 1 tablet by mouth daily. Active calcium carbonate (Tums) 500 MG chewable tablet Chew 1 tablet daily. Active furosemide (Lasix) 20 MG tablet Take 1 tablet by mouth daily. Active hydroCHLOROthiaz marck (HYDRODiuril) 25 MG tablet Take 1 tablet by mouth daily. Active insulin aspart (NovoLOG) 100 UNIT/ML injection vial Inject 0.8 Units under the skin 3 times a day before meals. Active insulin glargine (Lantus) 100 UNIT/ML injection vial Inject 1 Units under the skin nightly. Active levothyroxine (Synthroid, Levoxyl) 75 MCG tablet Take 1 tablet by mouth daily before breakfast. Active losartan (Cozaar) 100 MG tablet Take 1 tablet by mouth daily. Active pravastatin (Pravachol) 40 MG tablet Take 1 tablet by mouth nightly. Active spironolactone (Aldactone) 25 MG tablet Take 1 tablet by mouth daily. 12/28/2024 Active Encounters Date Type Department Care Team Description 02/26/2025 9:00 AM EDT Office Visit [facility] [address] [place] [address] Roshni Sánchez APRN Stage 3b chronic kidney disease (CMS/HCC) (Primary Dx); Essential hypertension; Proteinuria, unspecified type; Chronic kidney disease-mineral and bone disorder; Microalbuminuria; Diabetes mellitus due to underlying condition with diabetic chronic kidney disease, unspecified CKD stage, unspecified whether equipment operator intermodal yard insulin use ([facility]); Iron deficiency anemia, unspecified iron deficiency anemia type 02/26/2025 Travel 01/20/2025 Orders Only [facility] [address] [address] Bonita Delgadillo Stage 3 chronic kidney disease, unspecified whether stage 3a or 3b CKD ([facility]) (Primary Dx); Vitamin D insufficiency from Last [...] Mass Index 20.19 02/26/2025 9:20 AM EDT Plan of Treatment Upcoming Encounters Date Type Department Care Team (Late st Contact Info) Description 09/03/2025 8:40 AM EST Office Visit [facility] [address] [address] Roshni Sánchez, CLIENT PORTFOLIO MANAGER [address] [address] Health Maintenance Due Date Last Done Comments [facility]-Bone Density Scan 1942 [facility]-Depression Screening 1942 [facility]-Medicare Annual Wellness (AWV) 1940 [facility]-/Child/Adol SDOH Screenings 1942 Diabetes: Dental Exam 02/22/1952 [facility]- SDOH Screenings 02/22/1960 [facility]-Adult SDOH Screenings 02/22/1960 [facility]-RSV Vaccine: 60+ Years or (1 - 1-dose 75+ series) 2017 [id number] Vaccine (2024- season) 2025 04/25/2022, 02/12/2022, 05/03/2021, Additional history exists [facility]-Influenza Vaccine (#1) 03/22/202504/14, 04/12/2023, 04/30/2022, Additional history exists [facility]-Diabetes: Hemoglobin A1C 03/25/2025 12/24/2024, 09/30/2024, 07/02/2024, Additional history exists [facility]-DTaP,Tdap,and Td Vaccines (2 [...] patient's age to complete this topic Insurance [employer] MEDICARE Care Teams Video Tape Editor Relationship Specialty Start Date End Date Alo Infante MD [address] [place] [address] PCP - General 12/02/20
--- OUTSIDE RECORDS SUMMARY | 2025-04-07 09:08 | XMS_ITS | Encounter Summary ---
Author Organization [facility] Address [address] [address] Care Team Providers Care Flotation Tender Name Role Phone Blaine Meyer DO Primary Care Provider + Encounter Details Date Type Department Care Team (Late st Contact Info) Description 10/01/2024 Results Follow-Up [facility] [address] [facility] [address] [place] [address] Berta Mack PA [address] [facility] [address] [place], [place] [id number] Social History Tobacco Use Types Packs/Day Years [...] Description 05/20/2025 11:30 AM EDT Office Visit [facility] [address] [address] Kevin Cardona MD [address] [id number] documented as of this encounter Visit Diagnoses Not on filedocumented in this encounter Care Teams Flotation Tender Relationship Specialty Start Date End Date Blaine Meyer DO [address] [place] [address] PCP - General Internal Medicine 09/30/24 documented as of this encounter
--- OUTSIDE RECORDS SUMMARY | 2025-04-07 09:08 | XMS_ITS | Encounter Summary ---
Author Organization [facility] Address [address] [place] [address] Care Team Providers Care Pharmacy Technology Instructor Name Role Phone Alo Infante MD Primary Care Provider [phone] Encounter Details Date Type Department Care Team (Latest Contact Info) Description 02/26/2025 Travel Social History Tobacco Use Types Packs/Day [...] Description 09/03/2025 8:40 AM EST Office Visit [facility] [address] [place] [address] Roshni Sánchez, BING [address] [address] documented as of this encounter Visit Diagnoses Not on filedocumented in this encounter Additional Health Concerns Assessment Noted Time A Body Mass Index follow-up plan has been documented for the patient 02/26/2025 9:57 AM EDT documented as of this encounter Care Teams Pharmacy Technology Instructor Relationship Specialty Start Date End Date Alo Infante MD [address] [place] [address] PCP - General 12/02/20 documented as of this encounter
--- OUTSIDE RECORDS SUMMARY | 2025-04-07 09:08 | XMS_ITS | Encounter Summary ---
Author Organization [facility] Address [address] [place] [address] Care Team Providers Care Survey Supervisor Name Role Phone Blaine Meyer DO Primary Care Provider + Reason for Visit * Reason Comments Med Refill Encounter Details Date Type Department Care Team (Late st Contact Info) Description 03/16/2025 Refill [facility] [address] [place] [address] Kevin Cardona MD [address] [place], [place] [id number] Postoperative hypothyroidism Social History Tobacco Use Types Packs/Day Years [...] on file documented as of this encounter Miscellaneous Notes * Telephone Encounter - Kriss Santos MA - 03/16/2025 8:08 AM EDT Rx Refill Note Requested Prescriptions Pending Prescriptions Disp Refills levothyroxine (SYNTHROID, LEVOTHROID) 75 MCG tablet [Pharmacy Med Name: Levothyroxine Sodium 75 MCGOral Tablet] 30 tablet 1 Sig: TAKE 1 TABLET BY MOUTH ONCE DAILY ON AN EMPTY STOMACH Last office visit with prescribing clinician: 12/24/2024 Next office visit with prescribing clinician: 05/20/2025 Kriss Santos MA 03/16/25, 08:08 EDT documented in this encounter Plan of Treatment Upcoming Encounters Date Type Department Care Team (Late st Contact Info) Description 05/20/2025 11:30 AM EDT Office Visit [facility] [address] [facility] [address] [place] [address] Kevin Cardona MD [address] [facility] [address] [place] [address] documented as of this encounter Visit Diagnoses Diagnosis Postoperative hypothyroidism Postsurgical hypothyroidism documented in this encounter Care Teams Survey Supervisor Relationship Specialty Start Date End Date Blaine Meyer DO [address] [facility] [address] [place] [address] PCP - General Internal Medicine 09/30/24 documented as of this encounter
--- OUTSIDE RECORDS SUMMARY | 2025-04-07 09:09 | XMS_ITS | Clinical Summary ---
Author Organization [facility] Address [address] [place] [address] Care Team Providers Care Youth Nutritional Monitor Name Role Phone Blaine Meyer DO Primary Care Provider + Allergies No known active allergies Medications aspirin 81 MG EC tablet Take 1 tablet by mouth Daily. Active Insulin Infusion Pump (MiniMed 530G Insulin Pump) device Medtronic 770G Insulin Pump: Mn 0.3, 3a 0.275, 6a 0.3, 8a 0.425, 3p 0.375, 8p 0.35; bolus 1:10 bfast, 1:25 lunch, 1:25 supper; ISF 12a 60, 4p 75; target 12a 110-120, 930p 120-140, AIT 4h Active hydroCHLOROthiazi de (HYDRODIURIL) 12.5 MG tablet Take 1 tablet by mouth Daily. Active furosemide (LASIX) 20 MG tablet Take 1 tablet by mouth Daily. 10/04/19 24 Active amLODIPine (NORVASC) 10 MG tablet Take 1 tablet by mouth Daily. 11/16/19 24 Active Insulin Glargine (Lantus SoloStar) 100 UNIT/ML injection pen Inject 7 units at bedtime 15 mL 02/04/20 24 Active Insulin Pen Needle (Pen [place]) 31G X 6 MM misc Use 1 daily 30 each 02/04/20 24 Active Insulin Pen Needle (BD Pen Needle Micro U/F) 32G X 6 MM misc Use 1 each Daily. 90 each 3 02/05/20 24 Active Continuous Glucose Sensor (Dexcom G6 Sensor)Indication s:Type 1 diabetes mellitus with hyperglycemia Use 1 each Every 10 (Ten) Days. 9 each 3 03/05/20 24 Active Continuous Glucose Transmitter (Dexcom G6 Transmitter) miscIndications:T ype 1 diabetes mellitus with hyperglycemia Use 1 each Every 3 (Three) Months. 1 each 3 03/05/20 24 Active NovoLOG 100 UNIT/ML injectionIndicati ons:Type 1 diabetes mellitus with hyperglycemia USE IN INSULIN PUMP MAX OF 40 UNITS PER DAY DIRECTED 40 mL 1 12/25/19 25 Active pravastatin (PRAVACHOL) 40 MG tabletIndications :Hypercholesterol emia Take 1 tablet by mouth Daily. 90 tablet 3 12/25/19 25 Active losartan (COZAAR) 100 MG tabletIndications :Type 1 diabetes mellitus with hyperglycemia Take 1 tablet by mouth Daily. 90 tablet 3 12/25/19 25 Active levothyroxine (SYNTHROID, LEVOTHROID) 75 MCG tabletIndications :Postoperative hypothyroidism TAKE 1 TABLET BY MOUTH ONCE DAILY ON AN EMPTY STOMACH 30 tablet 6 03/16/20 25 Active levothyroxine (SYNTHROID, LEVOTHROID) 75 MCG tabletIndications :Postoperative hypothyroidism TAKE 1 TABLET BY MOUTH ONCE DAILY ON AN EMPTY STOMACH 30 tablet 11 03/05/20 24 025 Discontinued Active Problems Problem Noted Date Diagnosed Date [...] hybrid closed-loop -Continue Dexcom G6 CGM with Pure Klimaschutztronic 770G, see media tab for settings changes [...] show a slight trend up in the clearing inspector hours. Increased basal insulin rate slightly from [...] insulin sooner to prevent postprandial hyperglycemia -Continue Dexcom G6 -Continue Medtronic 770 G -Continue losartan 100 mg daily; [...] increase in her basal rate in the clearing inspector time to bring her morning glucose down; [...] Encounters Date Type Department Care Team Description 03/16/2025 Refill [facility] [address] [facility] [address] [place] [address] Kevin Cardona MD Postoperative hypothyroidism from Last 3 Months Immunizations Immunization Administration [...] Visit [facility] [address] [facility] [address] [place] [phone] Kevin Cardona MD [address] [facility] [address] [place] [address] Health Maintenance Due Date Last Done Comments DXA SCAN 1940 RSV Vaccine - Adults (1 - 1- dose 75+ series) 2017 ANNUAL WELLNESS VISIT 05/03/2020 DIABETIC FOOT EXAM 03/04/2025 03/04/2024 COVID-19 Vaccine (2024-2 6 season) 2025 04/25/2022, 02/12/2022, 05/03/2021, Additional history exists INFLUENZA VACCINE 04/21/2025 04/14/2024, , 04/30/2022, Additional [...] Procedure Name Priority Date/Time Associated Diagnosis Comments LIPID PANEL Routine 12/24/2024 1:05 PM EDT Hypercholesterolemia POCT GLYCOSYLATED HEMOGLOBIN (HGB A1C) Routine 12/24/2024 12:45 PM EDT Type 1 diabetes mellitus with hyperglycemia MICROALBUMIN / CREATININE URINE RATIO Routine 10/05/2022 1:25 PM EDT Type 1 diabetes mellitus with hyperglycemia from Last 3 Months or Most Recently Relevant to Health Maintenance Results * (ABNORMAL) Lipid Panel (12/24/2024 1:05 PM EDT) Total Cholesterol 170 0 - 200 mg/dL 12/25/2024 12:28 AM EDT [facility] Triglycerides 89 0 - 150 mg/dL 12/25/2024 12:28 AM EDT [facility] HDL Cholesterol 79(H) 40 - 60 mg/dL 12/25/2024 12:28 AM EDT [facility] LDL Cholesterol 75 0 - 100 mg/dL 12/25/2024 12:28 AM EDT [facility] VLDL Cholesterol 16 5 - 40 mg/dL 12/25/2024 12:28 AM T [facility] LDL/HDL Ratio 0.93 12/25/2024 12:28 AM T [facility] Blood Structure of left upper limb / Unknown Venipuncture / Unknown 12/24/2024 1:05 PM EDT 12/24/2024 1:06 PM EDT [facility] - 12/25/2024 12:28 AM EDT Cholesterol [...] is calculated using the NIH LDL-C calculation. Kevin Cardona MD LAB BLOOD ORDERABLES Final Result [facility]
[address] [place] [address], * (ABNORMAL) POC Glycosylated Hemoglobin (Hb A1C) (12/24/2024 12:45 PM EDT) Hemoglobin A1C 7.0(A) 4.5 - 5.7 % [facility] Lot Number [id number] [facility] Expiration Date 09/16/26 [facility] Blood 12/24/2024 12:4 5 PM EDT Kevin Cardona MD POINT OF CARE TEST ORDERABL ES Final Result [facility]
[address] [place] [address], [place] [phone] * Microalbumin / Creatinine Urine Ratio - Urine, Clean Catch (10/05/2022 1:25 PM EDT) Creatinine, Urine 62.3 Not Estab. mg/dL [facility] Microalbumin, Urine 15.0 Not Estab. ug/mL [facility] Microalbumin/Cre atinine Ratio 24 0 - 29 mg/g creat [facility] Comment: Normal: 0 - 29 Moderately increased: 30 - 300 Severely increased: >300 Urine Urine specimen obtained by clean catch procedure / Unknown 10/05/2022 1:25 PM EDT 10/05/2022 Comment:Urine Release to matias Little [facility]) - 10/06/2022 9:37 AM EDT Performed at: [facility] [id number] Railroad Brake Repairer: Alberto Yan PhD, Phone: [phone] Kevin Cardona MD URINE ORDERABLES Final Resu lt [facility] [address] [place] [address], [place] [phone] [facility] [address] [place] [address], [place] [phone] from Last 3 Months or Most Recently Relevant to Health Maintenance Insurance [employer] MED[employer]ARE ADVANTAGE PPO Care Teams Youth Nutritional Monitor Relationship Specialty Start Date End Date Blaine Meyer DO [address] [place] [id number] PCP - General Internal Medicine 09/30/24
== END 2025-04-07 23:59 | disposition home or self-care (01) ==
LOC: RAD 08:43
PROVIDERS: PCP Internal Medicine; Visit Provider Internal Medicine
DX: M85.88 Other specified disorders of bone density and structure, other site (principal); M81.0 Age-related osteoporosis without current pathological fracture
CPT/HCPCS: 77080

== ENCOUNTER 2025-07-19 14:23 | Outpatient (CLI) | payer MEDICARE, SELFPAY ==
--- OUTSIDE RECORDS SUMMARY | 2025-07-13 11:15 | XMS_ITS | Encounter Summary ---
Author Organization [facility] Address [address] [place] [address] Care Team Providers Care Head Refrigeration Engineer Name Role Phone Blaine Meyer DO Primary Care Provider + Reason for Visit * Reason Comments Diabetes Encounter Details Date Type Department Care Team (Late st Contact Info) Description 07/13/2025 11:15 AM EST Office Visit [facility] [address] [phone] Bowen Marie PA-C [address] [phone] Type 1 diabetes mellitus with hyperglycemia (Primary Dx); Postoperative hypothyroidism Social History Tobacco Use Types [...] Binge Drinking Not on file 07/22 Comments No Sex and Gender Information Value Date Recorded Sex Assigned at Not on file Legal Sex Female 12:30 PM EDT Gender Identity Not on file Sexual Orientation Not on file documented as of this encounter Last Filed Vital Signs Vital Sign Reading Time Taken Comments Blood Pressure 104/64 07/13/2025 10:43 AM EST Pulse 76 07/13/2025 10:43 AM EST Temperature - - Respiratory Rate - - Oxygen Saturation 99% 07/13/2025 10: 43 AM EST Inhaled Oxygen Concentration - - Weight 53.4 kg (117 lb 12.8 oz) 025 10:43 AM EST Height 157.5 cm (5' 2 ) 07/13/2025 10:4 3 AM EST Body Mass Index 21.55 07/13/2025 10:43 AM EST documented in this encounter Progress Notes * Bowen Marie PA-C - 07/13/2025 11:15 AM ESTAssociated Problem(s): Type 1 diabetes mellitus with hyperglycemia - A1c increased slightly to 7.3%. While A1c has increased this is still in the acceptable range forpatient's age. - CGM data showed occasional postprandial hyperglycemia with rare hypoglycemia. Encouraged patient to watch diet and dose insulin correctly. - Patient is up-to-date on fasting labs. - Will follow-up in 3 months for recheck. - Patient verbalized understanding of plan today. Orders: POC Glycosylated Hemoglobin (Hb A1C) POC Glucose, Blood * Bowen Marie PA-C - 07/13/2025 11:15 AM ESTAssociated Problem(s): Postoperative hypothyroidism - Patient is compliant on 75 mcg levothyroxine daily. -Patient is due for TSH, but patient requested to have TSH completed at her local lab. Order was placed and printed out for patient today. -Will follow-up in 3 months for recheck. -Advised patient that once we receive her lab results we will contact her about possible change dosage needed. -Patient verbalized understanding of plan today. Orders: TSH; Future * Bowen Marie PA-C - 07/13/2025 11:15 AM EST Images from the original note were not included. Office Note Date: 07/13/2025 Patient Name: Virginia Lima : 1940 Chief Complaint Patient presents with Diabetes History of Present Illness: Virginia Lima is a 85 y.o. female who presents for Diabetes type 1, and hypothyroidism. Last visit04/16/[address] Cardona. A1c today 7.3%. No updates to her health since last visit. She denies any hypothyroid symptoms. #Type 1 DM: Diagnosed: -1965 Current treatments: -Medtronic 770 G with DexBevii G6 CGM Checks blood sugar via CGM Average readings: 170 Has low blood sugar: occasional. CGM/pump downloaded -Dates reviewed: 06/30/25-07/13/25 -Data: 63% time in range, 26% high, 10% very high, 1% low, less than 1% very low -Interpretation: Occasional postprandial hyperglycemia. Occasional hypoglycemia DM Health Maintenance: Ophtho: 06/2025 Last foot exam: 04/16/2025 Lipids/Statin: 12/24/24, taking pravastatin 40 mg ALBINA: 12/24/24 TSH: 12/24/24 Aspirin: 81 mg ASA JOSE/ARB: Losartan 100 mg daily # Postoperative hypothyroidism - Patient had thyroidectomy approximately 2019 for benign nodule. - Current dose of levothyroxine 75 mcg daily. - TSH 1.230 and free T4 1.23 Done 12/24/2024 Subjective Diabetic Complications: Eyes: No retinopathy, does have macular degeneration Kidneys: Yes - CKD 3B Feet: No Heart: No Review of Systems: Review of Systems Constitutional: Negative for fatigue. Respiratory: Negative for shortness of breath. Cardiovascular: Negative for chest pain. Endocrine: Negative for polydipsia, polyphagia and polyuria. The following portions of the patient's history were reviewed and updated as appropriate: allergies, current medications, past family history, past medical history, past social history, past surgicalhistory, and problem list. Objective Visit Vitals BP 104/64 (BP Location: Left arm, Patient Position: Sitting, Cuff Size: Adult) Pulse 76 Ht 157.5 cm (62 ) Wt 53.4 kg (117 lb 12.8 oz) SpO2 99% BMI 21.55 kg/m?? Physical Exam: Physical Exam Vitals reviewed. Constitutional: General: She is not in acute distress. Appearance: Normal appearance. Skin: General: Skin is warm and dry. Capillary Refill: Capillary refill takes less than 2 seconds. Neurological: Mental Status: She is alert. Psychiatric: Mood and Affect: Mood normal. Behavior: Behavior normal. Labs: HbA1c Hemoglobin A1C Date Value Ref Range Status 07/13/2025 7.3 (A) 4.5 - 5.7 % Final . CMP Lab Results Component Value Date GLUCOSE 223 (H) 12/24/2024 BUN 38.0 (H) 12/24/2024 CREATININE 1.51 (H) 12/24/2024 EGFRIFNONA 88 08/05/2020 BCR 25.2 (H) 12/24/2024 K 5.1 12/24/2024 CO2 21.2 (L) 12/24/2024 CALCIUM 9.2 12/24/2024 AST 16 12/24/2024 ALT 5 12/24/2024 Lipid Panel Lab Results Component Value Date HDL Cholesterol 79 (H) 12/24/2024 LDL Cholesterol 75 12/24/2024 LDL/HDL Ratio 0.93 12/24/2024 Triglycerides 89 12/24/2024 TSH Lab Results Component Value Date TSH 1.230 12/24/2024 FREET4 1.23 12/24/2024 Assessment / Plan Assessment & Plan: Assessment & Plan Type 1 diabetes mellitus with hyperglycemia - A1c increased slightly to 7.3%. While A1c has increased this is still in the acceptable range forpatient's age. - CGM data showed occasional postprandial hyperglycemia with rare hypoglycemia. Encouraged patient to watch diet and dose insulin correctly. - Patient is up-to-date on fasting labs. - Will follow-up in 3 months for recheck. - Patient verbalized understanding of plan today. Orders: POC Glycosylated Hemoglobin (Hb A1C) POC Glucose, Blood Postoperative hypothyroidism - Patient is compliant on 75 mcg levothyroxine daily. -Patient is due for TSH, but patient requested to have TSH completed at her local lab. Order was placed and printed out for patient today. -Will follow-up in 3 months for recheck. -Advised patient that once we receive her lab results we will contact her about possible change dosage needed. -Patient verbalized understanding of plan today. Orders: TSH; Future Current Outpatient Medications Medication Instructions amLODIPine (NORVASC) 5 mg, Daily aspirin 81 mg, Daily Continuous Glucose Sensor (Dexcom G6 Sensor) 1 each, Not Applicable, Every 10 Days Continuous Glucose Transmitter (Dexcom G6 Transmitter) misc 1 each, Not Applicable, Every 3 Months estradiol (ESTRACE) 0.1 MG/GM vaginal cream furosemide (LASIX) 20 MG tablet 1 tablet, Daily Insulin Glargine (Lantus SoloStar) 100 UNIT/ML injection pen Inject 7 units at bedtime Insulin Infusion Pump (MiniMDatezr 530G Insulin Pump) device Dynatherm Medicaltronic 770G Insulin Pump: Mn 0.3, 3a 0.275, 6a 0.3, 8a 0.425, 3p 0.375, 8p 0.35; bolus 1:10 bfast, 1:25 lunch, 1:25 supper; ISF 12a 60, 4p 75; target 12a 110-120, 930p 120-140, AIT 4h Insulin Pen Needle (BD Pen Needle Micro U/F) 32G X 6 MM misc 1 each, Not Applicable, Daily Insulin Pen Needle (Pen [place]) 31G X 6 MM misc Use 1 daily levothyroxine (SYNTHROID, LEVOTHROID) 75 mcg, Oral, Daily, on an empty stomach losartan (COZAAR) 100 mg, Oral, Daily NovoLOG 100 UNIT/ML injection USE IN INSULIN PUMP MAX OF 40 UNITS PER DAY DIRECTED pravastatin (PRAVACHOL) 40 mg, Oral, Daily spironolactone (ALDACTONE) 25 mg Return in about 3 months (around 10/11/2025) for Recheck. Please note that portions of this note may have been completed with a voice recognition program. Efforts were made to edit the dictations, but occasionally words are mistranscribed. Electronically signed by: Bowen Marie PA-C 07/13/2025 documented in this encounter Plan of Treatment Upcoming Encounters Date Type Department Care Team (Late st Contact Info) Description 10/14/2025 10:15 AM EDT Office Visit [facility] [address] [place] [phone] Kevin Cardona MD [address] [phone] Scheduled Orders Name Type Priority Associated Diagnoses Orde r Schedule TSH Lab Routine Postoperative hypothyroidism Expected: 07/18/2025, Expires: 07/13/2026 documented as of this encounter Procedures Procedure Name Priority Date/Time Associated Diagnosis Comments POCT GLUCOSE, BLD (NON STRIP) Routine 07/13/2025 10:55 AM EST Type 1 diabetes mellitus with hyperglycemia POCT GLYCOSYLATED HEMOGLOBIN (HGB A1C) Routine 07/13/2025 10:55 AM EST Type 1 diabetes mellitus with hyperglycemia documented in this encounter Results * (ABNORMAL) POC Glucose, Blood (07/13/2025 10:55 AM EST) Glucose 215(A) 70 - 130 mg/dL Lot Number [id number] Expiration Date 01/11/26 Blood 07/13/2025 10:5 5 AM EST Bowen RUFFINC POINT OF CARE TEST ORDERABLES F inal Result * (ABNORMAL) POC Glycosylated Hemoglobin (Hb A1C) (07/13/2025 10:55 AM EST) Hemoglobin A1C 7.3(A) 4.5 - 5.7 % [facility] Lot Number [id number] [facility] Expiration Date 01/04/27 [facility] Blood 07/13/2025 10:5 5 AM EST Bowen ROGER-C POINT OF CARE TEST ORDERABLES F inal Result [facility]
[address] [place] [phone], documented in this encounter Visit Diagnoses Diagnosis Type 1 diabetes mellitus with hyperglycemia- Primary Postoperative hypothyroidism Postsurgical hypothyroidism documented in this encounter Care Teams Head Refrigeration Engineer Relationship Specialty Start Date End Date Blaine Meyer DO [address] [place] [id number] PCP - General Internal Medicine 09/30/24 documented as of this encounter
--- OUTSIDE RECORDS SUMMARY | 2025-07-19 14:32 | XMS_ITS | Clinical Summary ---
Author Organization [facility] Address [address] [place] [address] Care Team Providers Care Messenger Office Name Role Phone Alo Infante MD Primary Care Provider [phone] Allergies No known active allergies Medications amLODIPine [...] 1 tablet by mouth daily. 12/28/2024 Active Social History Tobacco Use Types Packs/Day Years [...] Description 09/03/2025 8:40 AM EST Office Visit [facility] [address] [place] [address] Roshni Sánchez, TOBACCO HANGER [address] [phone] Health Maintenance Due Date Last Done Comments [facility]-Bone Density Scan 1940 [facility]-Depression Screening 1940 [facility]-Medicare Annual Wellness (AWV) 1940 [facility]-Infant/Child/Adol SDOH Screenings 1940 Diabetes: Dental Exam 02/22/1952 [facility]- SDOH Screenings 02/22/1960 [facility]-Adult SDOH Screenings 02/22/1960 [facility]-RSV Vaccine: 60+ Years or (1 - 1-dose 75+ series) 2017 [id number] Vaccine ( season) 2025 04/25/2022, 02/12/2022, 05/03/2021, Additional history exists [facility]-Influenza Vaccine (#1) 03/22/202504/14, 04/12/2023, 04/30/2022, Additional history exists [facility]-Diabetes: Hemoglobin A1C 03/25/2025 12/24/2024, 09/30/2024, 07/02/2024, Additional history exists [facility]-DTaP,Tdap,and Td Vaccines (2 - Td or Tdap) 11/20/2028 11/20/2018 [facility]-Zoster Vaccines Completed 09/21/2021, [facility]-Pneumococcal Vaccine: 50+ Years Completed 07/09/2022, 07/10/2021 HPV Vaccines (No Doses Required) Completed [facility]-HIB Vaccines Aged Out No longer e [...] this topic Insurance [employer] MEDICARE Care Teams Messenger Office Relationship Specialty [place] [id number] PCP - General 12/02/20
--- OUTSIDE RECORDS SUMMARY | 2025-07-19 14:32 | XMS_ITS | Encounter Summary ---
Author Organization [facility] Address [address] [place] [address] Care Team Providers Care White Mixing Operator Name Role Phone Blaine Meyer DO Primary Care Provider + Encounter Details Date Type Department Care Team (Late st Contact Info) Description 10/01/2024 Results Follow-Up [facility] [address] [facility] [address] [place] [address] Berta Mack PA [address] [facility] [address] [place], [place] [phone] Social History Tobacco Use Types Packs/Day Years [...] Description 10/14/2025 10:15 AM EDT Office Visit [facility] [address] [phone] Kevin Cardona MD [address] [phone] documented as of this encounter Visit Diagnoses Not on filedocumented in this encounter Care Teams White Mixing Operator Relationship Specialty Start Date End Date Blaine Meyer DO [address] [place] [id number] PCP - General Internal Medicine 09/30/24 documented as of this encounter
--- OUTSIDE RECORDS SUMMARY | 2025-07-19 14:32 | XMS_ITS | Clinical Summary ---
Author Organization [facility] Address [address] [place] [address] Care Team Providers Care Bible Teacher Name Role Phone Blaine Meyer DO Primary Care Provider + Allergies No known active allergies Medications aspirin 81 MG EC tablet Take 1 tablet by mouth Daily. Active Insulin Infusion Pump (MiniMPushCoin 530G Insulin Pump) device Medtronic 770G Insulin Pump: Mn 0.3, 3a 0.275, 6a 0.3, 8a 0.425, 3p 0.375, 8p 0.35; bolus 1:10 bfast, 1:25 lunch, 1:25 supper; ISF 12a 60, 4p 75; target 12a 110-120, 930p 120-140, AIT 4h Active furosemide (LASIX) 20 MG tablet Take 1 tablet by mouth Daily. 4 Active Insulin Glargine (Lantus SoloStar) 100 UNIT/ML injection pen Inject 7 units at bedtime 15 mL 4 Active Insulin Pen Needle (Pen [place]) 31G X 6 MM misc Use 1 daily 30 each 4 Active Insulin Pen Needle (BD Pen Needle Micro U/F) 32G X 6 MM misc Use 1 each Daily. 90 each 3 4 Active Continuous Glucose Sensor (Dexcom G6 Sensor)Indications :Type 1 diabetes mellitus with hyperglycemia Use 1 each Every 10 (Ten) Days. 9 each 3 4 Active Continuous Glucose Transmitter (Dexcom G6 Transmitter) miscIndications:Ty pe 1 diabetes mellitus with hyperglycemia Use 1 each Every 3 (Three) Months. 1 each 3 4 Active losartan (COZAAR) 100 MG tabletIndications: Type 1 diabetes mellitus with hyperglycemia Take 1 tablet by mouth Daily. 90 tablet 3 5 Active spironolactone (ALDACTONE) 25 MG tablet Take 1 tablet by mouth. Take 1 tablet by mouth on Saturday, Saturday, and Saturday Active amLODIPine (NORVASC) 5 MG tablet Take 1 tablet by mouth Daily. Active estradiol (ESTRACE) 0.1 MG/GM vaginal cream 5 Active levothyroxine (SYNTHROID, LEVOTHROID) 75 MCG tabletIndications: Postoperative hypothyroidism Take 1 tablet by mouth Daily. on an empty stomach 30 tablet 6 5 Active NovoLOG 100 UNIT/ML injectionIndicatio ns:Type 1 [...] mellitus with hyperglycemia 12/2021 Assessment & Plan (07/13/2025 11:19 AM EST): - A1c increased slightly to 7.3%. While A1c has increased this is still in the acceptable range for patient's age. - CGM data showed occasional postprandial hyperglycemia with rare hypoglycemia. Encouraged patient to watch diet and dose insulin correctly. - Patient is up-to-date on fasting labs. - Will follow-up in 3 months for recheck. - Patient verbalized understanding of plan today. Orders: POC Glycosylated Hemoglobin (Hb A1C) POC Glucose, Blood Assessment & Plan (04/16/2025 8:45 AM EDT): -Has a little bit too much glycemic variability, recommend giving prandial insulin sooner and avoid stacking bolus insulin -Complications include CKD IIIb -When she is ready for a pump upgrade would recommend getting one that works with the Dexcom G6 so that she can use the pump and hybrid closed-loop -Continue Dexcom G6 CGM with [employer] 770G -Continue ARB; blood pressure today 98/62 DM Health Maintenance: Ophtho: last done 05/2024, no known retinopathy, has macular degeneration Monofilament / Foot exam: Completed 03/04/2024 no reported new sores Lipids/Statin: taking a statin with last FLP showing LDL 75 done 12/24/2024 ALBINA: Negative done 12/24/2024 aspirin: taking Assessment & Plan (12/24/2024 1:10 PM EDT): [...] hybrid closed-loop -Continue Dexcom G6 CGM with Medtronic 770G, see media tab for settings changes [...] show a slight trend up in the accounting generalist hours. Increased basal insulin rate slightly from [...] increase in her basal rate in the accounting generalist time to bring her morning glucose down; [...] Aspirin: taking Postoperative hypothyroidism Assessment & Plan (07/13/2025 11:19 AM EST): - Patient is compliant on 75 mcg [...] understanding of plan today. Orders: TSH; Future Assessment & Plan (04/16/2025 8:44 AM EDT): -Stable, continue levothyroxine 75 mcg daily Assessment & Plan (12/24/2024 1:06 PM EDT): [...] of insulin pump Hypercholesterolemia Assessment & Plan (04/16/2025 8:44 AM EDT): -Stable, continue pravastatin 40 mg daily Assessment & Plan (12/24/2024 1:08 PM EDT): [...] Encounters Date Type Department Care Team Description 07/13/2025 11:15 AM EST Office Visit [facility] [address] [place] [address] Cynthia, EDUARDO Wiseman Type 1 diabetes mellitus with hyperglycemia (Primary Dx); Postoperative hypothyroidism 07/13/2025 Travel from Last 3 Months Immunizations Immunization [...] Pulse 76 07/13/2025 10:43 AM EST Temperature 36.4 C (97.5 F) 11/08/2020 9:58 AM EDT Respiratory Rate - - Oxygen Saturation 99% 07/13/2025 10: 43 AM EST Inhaled Oxygen Concentration - - Weight 53.4 kg (117 lb 12.8 oz) 025 10:43 AM EST Height 157.5 cm (5' 2 ) 07/13/2025 10:4 3 AM EST Body Mass Index 21.55 07/13/2025 10:43 AM EST Plan of Treatment Upcoming Encounters Date Type Department Care Team (Late st Contact Info) Description 10/14/2025 10:15 AM EDT Office Visit [facility] [address] [place] [id number] Kevin Cardona MD [address] [place] [address] Health Maintenance Due Date Last Done Comments DXA SCAN 1940 RSV Vaccine - Adults (1 - 1- dose 75+ series) 2017 ANNUAL WELLNESS VISIT 05/03/2020 COVID-19 Vaccine (2024-2 6 season) 2025 04/25/2022, 02/12/2022, 05/03/2021, Additional history exists DIABETIC EYE EXAM 06/11/2025 06/11/2024 (Pa tient-Reported (Performed Externally)), 07/20/2023 (Patient-Reported (Performed Externally)), 01/04/2022 (Patient-Reported (Performed Externally)) LIPID PANEL 12/24/2025 12/24/2024, 06/21, 03/06/2022, Additional history exists URINE MICROALBUMIN-CREATININ E RATIO (uACR) 12/25/2025 12/25/2024, 10/05/2022, 08/09/2021, Additional history exists HEMOGLOBIN A1C 01/11/2026 07/13/2025, 03/23, 12/24/2024, Additional history exists DIABETIC FOOT EXAM 04/16/2026 04/16/2025, 03/04/2024 TDAP/TD VACCINES (2 - Td or Tdap) 11/20/2028 019 ZOSTER VACCINE Completed 09/21/2021, 06/08/2021 Pneumococcal Vaccine 50+ Completed 07/09/2022, 06/22 INFLUENZA VACCINE Completed 04/23/2025, , 04/12/2023, Additional history exists Procedures Procedure Name Priority Date/Time Associated Diagnosis Comments POCT GLUCOSE, BLD (NON STRIP) Routine 07/13/2025 10:55 AM EST Type 1 diabetes mellitus with hyperglycemia POCT GLYCOSYLATED HEMOGLOBIN (HGB A1C) Routine 07/13/2025 10:55 AM EST Type 1 diabetes mellitus with hyperglycemia LIPID PANEL Routine 12/24/2024 1:05 PM EDT Hypercholesterolemia MICROALBUMIN / CREATININE URINE RATIO Routine 10/05/2022 1:25 PM EDT Type 1 diabetes mellitus with hyperglycemia from Last 3 Months or Most Recently Relevant to Health Maintenance Results * (ABNORMAL) POC Glucose, Blood (07/13/2025 10:55 AM EST) Glucose 215(A) 70 - 130 mg/dL Lot Number [id number] Expiration Date 01/11/26 Blood 07/13/2025 10:5 5 AM EST [facility] POINT OF CARE TEST ORDERABLES F inal Result * (ABNORMAL) POC Glycosylated Hemoglobin (Hb A1C) (07/13/2025 10:55 AM EST) Hemoglobin A1C 7.3(A) 4.5 - 5.7 % [facility] Lot Number [id number] [facility] Expiration Date 01/04/27 [facility] Blood 07/13/2025 10:5 5 AM EST [employer] [facility] POINT OF CARE TEST ORDERABLES F inal Result [facility]
[address] [place] [address], * (ABNORMAL) Lipid Panel (12/24/2024 1:05 PM EDT) Total Cholesterol 170 0 - 200 mg/dL 12/25/2024 12:28 AM EDT [facility] Triglycerides 89 0 - 150 mg/dL 12/25/2024 12:28 AM EDT [facility] HDL Cholesterol 79(H) 40 - 60 mg/dL 12/25/2024 12:28 AM EDT [facility] LDL Cholesterol 75 0 - 100 mg/dL 12/25/2024 12:28 AM EDT [facility] VLDL Cholesterol 16 5 - 40 mg/dL 12/25/2024 12:28 AM EDT [facility] LDL/HDL Ratio 0.93 12/25/2024 12:28 AM EDT [facility] Blood Structure of left upper limb / Unknown Venipuncture / Unknown 12/24/2024 1:05 PM EDT 12/24/2024 1:06 PM EDT Narrative [facility] - 12/25/2024 12:28 AM EDT Cholesterol [...] Cardona MD LAB BLOOD ORDERABLES Final Result [facility]
[address] [place] [address], * Microalbumin / Creatinine Urine Ratio - [...] 10/05/2022 Comment:Urine Release to matias Little [facility] (AMBULATORY) - 10/06/2022 9:37 AM EDT Performed at: - [facility] [address] [id number] Textile Designer: Alberto Yan PhD, Phone: [phone] Kevin Cardona MD URINE ORDERABLES Final Resu lt [facility] (AMBULATORY) [address] [place] [address], [facility] [address] [place] [address], from Last 3 Months or Most Recently Relevant to Health Maintenance Insurance [employer] MED[employer]ARE [employer]VANTAGE PPO Care Teams Bible Teacher Relationship Specialty Start Date End Date Blaine Meyer DO [address] [place] [address] [place], [place] [address] PCP - General Internal Medicine 09/30/24
--- OUTSIDE RECORDS SUMMARY | 2025-07-19 14:32 | XMS_ITS | Encounter Summary ---
Author Organization [facility] Address [address] [place] [address] Care Team Providers Care Fagot Maker Name Role Phone Blaine Meyer DO Primary Care Provider + Encounter Details Date Type Department Care Team (Latest Contact Info) Description 07/13/2025 Travel Social History Tobacco Use Types Packs/Day [...] 10/14/2025 10:15 AM EDT Office Visit [facility] [address] [place] [address] Kevin Cardona MD [address] [place] [address] documented as of this encounter Visit Diagnoses Not on filedocumented in this encounter Care Teams Fagot Maker Relationship Specialty Start Date End Date Blaine Meyer DO [address] [place] [address] [place] [address] PCP - General Internal Medicine 09/30/24 documented as of this encounter
[2025-07-19 16:51] LABS: Thyroid Stimulating Hormone 3.18 uIU/mL (0.465-4.68)
== END 2025-07-19 23:59 | disposition home or self-care (01) ==
LOC: LAB 14:24
PROVIDERS: PCP Internal Medicine; Visit Provider Physician Assistant
DX: E89.0 Postprocedural hypothyroidism (principal)
CPT/HCPCS: 36415; 84443